=== PATIENT | female | born 1950 | race Caucasian/White ===

== ENCOUNTER 2019-02-20 09:37 | Outpatient (CLI) | payer OTHER, SELFPAY ==
[2019-02-20 14:24] LABS: Anion Gap 7.5 mmol/L (3-11); BUN 22 mg/dL (7-18); CO2 29.5 mmol/L (21.0-32.0); CREATININE 0.67 mg/dL (0.55-1.02); Calcium 9.4 mg/dL (8.5-10.1); Chloride 103 mmol/L (98-107); Cholesterol 257 mg/dL (50-200); Glucose 91 mg/dL (70-100); HDL Cholesterol 84 mg/dL (40-60); LDL CHOLESTEROL 158 mg/dL (<100); Potassium 4.2 mmol/L (3.5-5.1); Sodium 140 mmol/L (136-145); Triglyceride 40 mg/dL (30-150)
== END 2019-02-20 09:57 ==
PROVIDERS: PCP Emergency Medicine; Visit Provider Emergency Medicine
DX: I10 Essential (primary) hypertension (principal)
CPT/HCPCS: 36415; 80048; 80061; 83721

== ENCOUNTER 2019-07-30 02:21 | Outpatient (CLI) | payer OTHER, SELFPAY ==
--- NOTE | 2019-08-16 08:29 | ZIOP_ITS ---
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 ?Patient wore the monitor for 13 days. ?The patient was predominantly in normal sinus rhythm. Average heart rate was 76 bpm (minimum 50 bpm?maximum 144 bpm) ?There were 4 episodes of supraventricular tachycardia with the longest lasting 11 beats. ?There were rare isolated (less than 1%) supraventricular ectopic beats ?There were isolated rare (less than 1%) singular ventricular ectopic beats. There were no episodes of ventricular tachycardia. ?There were no pauses greater than 3 seconds no episodes of atrial fibrillation and no episodes of high degree AV block. Date of service: 08/16/19 Time of Service: 08:29
== END 2019-07-30 02:41 ==
PROVIDERS: PCP Emergency Medicine; Visit Provider Emergency Medicine
DX: R55 Syncope and collapse (principal); I47.1 Supraventricular tachycardia

== ENCOUNTER 2020-05-13 02:55 | Outpatient (CLI) | payer OTHER, SELFPAY ==
[2020-05-13 10:30] LABS: Anion Gap 9.1 mmol/L (3-11); BUN 19 mg/dL (7-18); CO2 26.9 mmol/L (21.0-32.0); CREATININE 0.75 mg/dL (0.55-1.02); Calcium 9.2 mg/dL (8.5-10.1); Chloride 106 mmol/L (98-107); Glucose 90 mg/dL (74-106); Sodium 142 mmol/L (136-145)
[2020-05-13 10:33] LABS: Calculated LDL 85 mg/dL (<100); Cholesterol 174 mg/dL (<200); HDL Cholesterol 81 mg/dL (40-60); Triglyceride 42 mg/dL (<150)
== END 2020-05-13 03:15 ==
PROVIDERS: PCP Emergency Medicine; Visit Provider Emergency Medicine
DX: E78.5 Hyperlipidemia, unspecified (principal); I10 Essential (primary) hypertension
CPT/HCPCS: 36415; 80048; 80061

== ENCOUNTER 2021-04-20 10:52 | Outpatient (CLI) | payer OTHER, SELFPAY ==
[2021-04-20 13:57] LABS: Anion Gap 10.4 mmol/L (3-11); BUN 20 mg/dL (7-18); CO2 26.6 mmol/L (21.0-32.0); CREATININE 0.8 mg/dL (0.55-1.02); Chloride 106 mmol/L (98-107); Glucose 77 mg/dL (74-106); Potassium 3.8 mmol/L (3.5-5.1); Sodium 143 mmol/L (136-145)
== END 2021-04-20 10:53 | disposition home or self-care (01) ==
LOC: LOS 10:53
PROVIDERS: PCP Emergency Medicine; Referring Provider Emergency Medicine; Visit Provider Emergency Medicine
DX: I10 Essential (primary) hypertension (principal)
CPT/HCPCS: 36415; 80048

== ENCOUNTER → 2022-07-15 00:20 | Outpatient (CLI) | payer MEDICARE, SELFPAY ==
--- NOTE | 2022-07-15 08:00 | DI.MAMMO_ITS ---
Exam(s) MAMMO SCREENING EXAM: MAMMO SCREENING CLINICAL HISTORY: screening,z12.39, h/o stable spot lt breast TECHNIQUE: Mammograms were interpreted according to the usual protocol including computer analysis w [employer] CAD system, tomosynthesis and C-view imaging. COMPARISON: 2011 through 2020 FINDINGS: The breasts are composed of heterogeneously dense fibroglandular densities, Breast Density category C . No suspicious masses or suspicious microcalcifications are seen. Scattered coarse, benign-appearing calcifications are again noted bilaterally. No skin thickening or abnormal axillary lymph nodes are seen. There has been no significant change from prior exams. IMPRESSION: BI-RADS Cat 2 - Benign Findings Yearly screening mammography is recommended. Breast Density Category C, heterogeneously Dense. The mammogram demonstrates the patient's breast tissue is dense. Dense breast tissue is very common a nd is not abnormal but dense breast tissue can make it harder to find cancer on a mammogram. Also, de nse breast tissue may increase breast cancer risk. This information about the result of the mammogram report was provided to the patient to raise their awareness. Use this report when you speak with the patient about their risks for breast cancer, which includes their family history. At that time, you may recommend additional screening tests (Ultrasound or MRI) as they might be useful based on their r isk. A negative radiographic report should not delay biopsy if a dominant or clinically suspicious mass is present. Up to ten percent of cancers are not identified on mammography. A negative report may reinforce clinical impression. Adenosis and dense breasts may obscure an underlying neoplasm. False positive reports average 6 to 10%.
--- NOTE | 2022-07-15 15:20 | DI.DEXA_ITS ---
Exam(s) XR DEXA BONE DENSITY W/WO JOLYNN EXAM: XR DEXA BONE DENSITY W/WO JOLYNN CLINICAL HISTORY: osteoporosis,m81.0 TECHNIQUE: COMPARISON: CR LUMBAR SPINE COMPLETE from 01/09/2013 FINDINGS: DEXA scan was performed according to the usual protocol. Please see the accompanying data sheets. Findings for left hip scanning are T-score -1.4 with left femoral neck T-score -1.3. Findings for lumbar spine scanning are T-score 0.2. Left forearm scanning shows T-score -2.4. IMPRESSION: Measurements are consistent with osteopenia according to the WHO criteria. The lateral vertebral sca nogram shows no evidence of a vertebral compression fracture. RADIATION DOSE DELIVERED: Total DLP
== END ==
PROVIDERS: PCP Family Medicine; Visit Provider Family Medicine
DX: Z12.31 Encounter for screening mammogram for malignant neoplasm of breast; Z13.820 Encounter for screening for osteoporosis; M85.88 Other specified disorders of bone density and structure, other site; R92.8 Other abnormal and inconclusive findings on diagnostic imaging of breast
CPT/HCPCS: 77063; 77067; 77080

== ENCOUNTER → 2022-07-19 09:25 | Outpatient (BNVA) | payer MEDICARE, SELFPAY | PROVIDERS: PCP Family Medicine; Referring Provider Emergency Medicine; Visit Provider Surgery | DX: Z86.010 Personal history of colon polyps (principal); Z12.11 Encounter for screening for malignant neoplasm of colon ==

== ENCOUNTER 2022-08-10 06:21 | Day surgery (SDC) | payer MEDICARE, SELFPAY ==
--- NOTE | 2022-08-10 06:16 | W.COLOREPORT ---
Date of service: 08/10/22 Time of Service: : Colonoscopy Report Date of procedure: 08/10/22 Pre-op diagnosis general: Screening and Hx of polyps Post-op diagnosis procedure note: other (polyps and diverticulosis) Procedure: Colonoscopy with polypectomy Surgeon: Gretel Nicholson Anesthesia Type: General:No Airway Estimated blood loss (mL): 3 Pathology: other (cecal polyps x2, ascending polyps x2, sigmoid polyp) Complications: None Disposition: same day Indications: The patient? is a pleasant ? 72-year-old female who is here to discuss another screening colonoscopy. ? Her last colonoscopy was in 2010 and she was noted to have a tubular adenoma.? She denies any changes in bowel habits, melena, hematochezia, unintentional weight loss or family history of colon cancer.? The procedure and risks were discussed.? The prep was reviewed in detail.? Risks, benefits and complications have been reviewed. Complications include but are not limited to bleeding, pain, perforation, missed small lesion/polyp, sore throat, aspiration and adverse reaction to the medications. Questions were entertained and answered to their satisfaction and they wished to proceed. No guarantees were given or implied. Prep: Miralax/Dulcolax Procedure Start Time: Procedure End Time: :53 Retraction Time: 16 minutes Findings: 5 sessile polyps Mcmahon-diverticulosis Procedure Description: After informed consent was obtained the patient was taken to the procedure room and placed in a left decubitous position. Monitors were applied and a time out was done. The patients name, date of , procedure, allergies to medications and metal in their body was reviewed. The patient was then sedated. Once sedated and comfortable a rectal exam was done. External exam was normal. Internal exam revealed a normal sphincter tone and no palpable masses. The scope was then introduced and retro-flexed. no internal hemorrhoids, polyps or masses were identified on retro-flexion. The scope was then advanced to the cecum without difficulty. The colon was tortuous. The ileocecal valve and appendiceal orifice were identified. The prep was good. The scope was then slowly retracted over 16 minutes back into the rectum. Polyps were removed with cold forceps in the cecum x1, ascending colon x2 and sigmoid colon x1 and with a cold snare in the cecum x1. There was moderate mcmahon- diverticulosis noted. The scope was removed and the patient was woken up and taken back to Same day surgery in stable condition. The patient tolerated the procedure well and there were no immediate complications.
--- NOTE | 2022-08-10 06:17 | W.PM.DSUDISC ---
Date of service: 08/10/22 Time of Service: 07:26 Discharge Plan Disposition Patient Disposition: HOME Condition: Good Discharge Details Reason For Visit: colonoscopy Attending Provider: Gretel Nicholson Primary Care Provider: Veda Robles Home Meds and New Rx's Prescriptions: Continued rosuvastatin 5 mg tablet 5 mg PO DAILY estradiol [Yuvafem] 10 mcg tablet 10 mcg vaginal .twice weekly Qty: 24 4RF amlodipine 5 mg tablet 5 mg PO DAILY Qty: 90 3RF losartan [Cozaar] 50 mg tablet 50 mg PO DAILY Qty: 90 3RF Discontinued bisacodyl [Dulcolax (bisacodyl)] 5 mg tablet,delayed release (DR/EC) 5 mg PO ONCE Qty: 4 0RF Rx Instructions: Take according to provider's instructions for colonoscopy prep. polyethylene glycol 3350 17 gram/dose powder 17 g PO ONCE Qty: 238 0RF Rx Instructions: To be taken as directed by prescriber's office for colonoscopy prep. Discharge Instructions Instructions: Diverticulosis (ED), Colorectal Polyps (DC) Additional Instructions: Findings: 5 polyps Diverticulosis Follow up: 3-5 years Please call if you develop: fevers >101.5 Nausea or Vomiting Abdominal pain that is not transient Rectal bleeding that is more then a tbsp A hard abdomen and inability to pass gas DAY SURGERY UNIT POST ENDOSCOPY INSTRUCTIONS Instructions for everyone who is given Anesthesia: For your safety, please do the following for the next 24 Hours: a. Do not drive or operate dangerous equipment b. Do not drink alcohol beverages or use any recreational drugs for the first 24 hours or while taking pain medications. The medications in your body may have a reaction that can be dangerous. c. Do not make any important decisions or sign any important papers 1. Generally there are no restrictions on your activity after a day or so has gone by, but you may feel a bit fatigued for a few days. 2. After you arrive home you may have a light meal and return to a normal diet as you can tolerate it without feeling sick to your stomach. 3. After surgery, you may feel pain or discomfort. This should be only transient, but if it persists please contact your doctor. 4. If there are any questions regarding the findings of your procedure, please feel free to contact your doctor. 6. If you are unable to contact your doctor with a problem, contact the hospital at [phone]. 8. Continue all your regular medications unless directed otherwise. I understand the above instructions and have no questions. Signature of Patient or Responsible Adult Escort Date/Time Name of Responsible Adult Escort Signature of Nurse Date/Time Activity:: Activity as Tolerated Diet:: high fiber diet Discharge Orders Discharge Orders: Discharge Order (Routine); Ordered 08/10/22 Ordered By: Gretel Nicholson
[2022-08-10 06:20] VITALS: BP 166/78; PULSE 95; RESP 18; TEMP 36.4; O2SAT 100
[2022-08-10] MEDS: Lactated Ringers 1,000 ML 80 ML IV (06:44)
--- NOTE | 2022-08-10 07:12 | W.ANESPRE ---
General Info Date of Service Date Performed: 08/10/22 Height: 5 ft 3 in Weight: 52.1 kg Body Mass Index (BMI): 20.3 Surgical Procedure: Operation Date: 08/10/22 07:35 Proposed Procedure Side Surgeon azar Nicholson MD Meds Allergies and Home Medications Allergies Allergy/AdvReac Type Severity Reaction Status Date / Time No Known Drug Allergies Allergy Verified 08/10/22 06:30 Home Medication Medication Instructions Recorded amlodipine 5 mg tablet 5 mg PO DAILY #90 tabs 12/31/21 losartan 50 mg tablet (Cozaar) 50 mg PO DAILY #90 tab-caps 12/31/21 estradiol 10 mcg vaginal tablet 10 mcg vaginal .twice weekly #24 05/17/22 (Yuvafem) tabs bisacodyl 5 mg tablet,delayed 5 mg PO ONCE #4 tabs 07/19/22 release (Dulcolax (bisacodyl)) polyethylene glycol 3350 17 17 g PO ONCE #238 grams 07/19/22 gram/dose oral powder rosuvastatin 5 mg tablet 5 mg PO DAILY 07/19/22 Current Visit Medications: Current Medications Generic Name Dose Route Start Last Admin Trade Name Freq PRN Reason Stop Dose Admin Hyoscyamine Sulfate 0.125 mg 08/10/22 06:19 Hyoscyamine 0.125 Mg Sl/Oral/Chew SL DIRECTED PRN Ringer's Solution 1,000 mls @ 80 mls/hr 08/10/22 06:00 08/10/22 06:44 IV 09/08/22 23:59 80 mls/hr INFUSION LYN Administration IV Miscellaneous Supplies 1 each 08/10/22 06:00 Iv Access IV 09/08/22 23:59 DIRECTED LYN Ondansetron HCl 4 mg 08/10/22 06:19 Ondansetron 4 Mg/2 Ml Vial IVP Q4H PRN PRN Nausea / Vomiting Sodium Chloride 0 ml 08/10/22 06:00 Normal Saline Flush 10 Ml Syr IV 09/08/22 23:59 PRN PRN Sodium Chloride 0 ml 08/10/22 06:00 Normal Saline 10 Ml Vial IJ 09/08/22 23:59 DIRECTED PRN Sterile Water 0 ml 08/10/22 06:00 Water,Injection,Sterile 10 Ml Vial IJ 09/08/22 23:59 DIRECTED PRN PFSH Active Problems Active Problems: Problem Status Onset Code Screening for colon cancer Z12.11 Osteoporosis M81.0 Hyperlipidemia E78.5 Pre-syncope R55 Impingement syndrome of left shoulder M75.42 Left shoulder pain M25.512 Meningioma D32.9 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 Essential hypertension 12/29/17 I10 Surgical History Surgical History CHILDBIRTH [birth year] Tobacco Smoking/Tobacco Use Status: Never Passive smoking exposure: Yes Alcohol Alcohol Intake: current Alcohol intake frequency: 0-2 drinks per day Alcohol type: wine Substance Use Substance use: Never Substance use type: does not use Prental History History 3 Para Hx # Term Pregnancies 2 Multiple births Hx # Pregnancies Ectopic pregnancies AB induced Hx Number of Living Children AB spontaneous Vital Signs and Lab Results Vital Signs Most Recent Vital Signs in EMR: Most Recent Vital Signs Temp Pulse Resp BP Pulse Ox 36.4 C L 95 H 18 166/78 H 100 08/10/22 06:20 08/10/22 06:20 08/10/22 06:20 08/10/22 06:20 08/10/22 06:20 Lab Results Blood Type / Crossmatch: No Data to Display Complete Blood Count: No Data to Display Complete Metabolic Panel: No Data to Display Liver Function Panel: No Data to Display Coagulation Panel: No Data to Display Cardiac Panel: No Data to Display Arterial Blood Gas: No Data to Display Venous Blood Gas: No Data to Display Pancreas Panel: No Data to Display Thyroid Panel: No Data to Display Infectious Disease: No Data to Display Blood Cultures: No Data to Display Toxicology Panel: No Data to Display Imaging and Studies Imaging and Studies Study information below may be from another EMR and interpreted by another provider. Please see original notes in EMR for more complete details. Stress Test Summary: Date of Exam: 05/21/15Sex: F : 1950Age: 64 Exam(s) [id number] US:Stress Echocardiogram *[facility]* *[facility]* [address] [place] [address] Date of study: 05/21/2015 Stress Echocardiography Sascha protocol 2D, limited spectral Doppler, and color Doppler *STUDY CONCLUSIONS* Summary: 1. Stress: Maximal heart rate during stress was 152bpm (97% of maximal predicted heart rate). The maximal predicted heart rate was 156bpm. 2. Staged echo: Normal echo stress Anesthesia Assessment and Plan Anesthesia History Personal History: No History of Anesthesia Complications Family History: No Family History of Anesthesia Complications Exercise Tolerance Exercise Tolerance: Metabolic Equivalents>4 Pertinent Negatives Pertinent Negatives: No Symptoms of GERD and No Major Pulmonary Symptoms or Complaints Cardiac & Pulmonary Exam Cardiac Exam: Normal S1/S2 Heart Sounds Pulmonary Exam: Clear Bilateral Breath Sounds Implantable Cardiac Device Does patient have a Pacemaker or an ICD?: No Airway Exam Known Difficult Airway: No Mallampati Class: 2 Mouth Opening: Normal (> 3cm) Thyromental Distance: Less than 3 cm Neck Range of Motion: Full ROM Neck Circumference: Normal Teeth Condition: Normal Dentition ASA Classification ASA Score: ASA 2 Emergency Case?: No NPO Status NPO Status: NPO Clears >2 hours, Solids >8 hours Anesthesia Plan Resuscitation Status: Full Code Anesthesia Technique: General Anesthesia Airway Planned: Natural Airway Monitors Used: Standard Monitors
[2022-08-10 07:29] VITALS: BMI 20.3
--- NOTE | 2022-08-10 07:37 | BOWEL_PTH ---
PATIENT: Shea Kraus LOC: [facility] U#:[id number] AGE/SX: 72/F ROOM: RE08/10/[address]: Gretel Nicholson MD : 1950 BED: DIS: 08/10/2022 SPEC #: [id number] RECD: 08/10/22 12:58 STATUS: EDISON REChristi #: [id number] GARCIA: 08/10/22 07:[address]: Gretel Nicholson DEPT: Surgical Specimen RECD BY: Venecia Lindsay ENTERED: 08/10/22 12:59 SP TYPE: Bowel OTHR DR: Veda Robles MD, DC Tissues: 1 - BIOPSY BOWEL 2 - BIOPSY BOWEL 3 - BIOPSY BOWEL Procedures: GROSS AND MICRO LEVEL 4 Comments: [id number]
[2022-08-10 08:00] VITALS: BP 80/57; PULSE 69; RESP 16; TEMP 36.1; O2SAT 93
[2022-08-10 08:10] VITALS: BP 85/60; PULSE 65; RESP 16; TEMP 36; O2SAT 97
--- NOTE | 2022-08-10 08:27 | W.ANESPOSTOP ---
Postoperative Evaluation Date, Time and Location Date Performed: 08/10/22 Time Performed: 08:15 Patient Location: Day Surgery Unit Vital Signs Most Recent Imported Vital Signs: Most Recent Vital Signs Temp Pulse Resp BP Pulse Ox 36 C L 65 16 85/60 L 97 08/10/22 08:10 08/10/22 08:10 08/10/22 08:10 08/10/22 08:10 08/10/22 08:10 Pain Score Most Recent Pain Score: Most Recent Pain Score Pain Level 0 08/10/22 08:10 Assessment Mental Status: Awake (Alert & Oriented to Patient Baseline) Airway and Respiratory Function: Patent airway with normal (patient baseline) respiratory exam Cardiovascular Function: Hemodynamically Stable Hydration Status: Adequately Hydrated Nausea & Vomiting: No Nausea or Vomiting Pain: Pt. Denies Any Pain Peripheral Nerve Block: Patient did not receive a nerve block
== END 2022-08-10 08:55 | disposition home or self-care (01) ==
PROVIDERS: PCP Family Medicine; Visit Provider Surgery
PROC: 0DJD8ZZ Inspection of Lower Intestinal Tract, Via Natural or Artificial Opening Endoscopic (ICD-10-PCS; CPT 45378; principal; 2022-08-10 07:30)
DX: Z12.11 Encounter for screening for malignant neoplasm of colon (principal); K63.5 Polyp of colon; K57.30 Diverticulosis of large intestine without perforation or abscess without bleeding; Z86.010 Personal history of colon polyps
CPT/HCPCS: 45385; 45380; 88305

== ENCOUNTER 2022-08-19 02:28 | Outpatient (CLI) | payer MEDICARE, SELFPAY ==
--- OUTSIDE RECORDS SUMMARY | 2022-08-19 02:42 | XMS_ITS | Encounter Summary ---
:1950 Author Organization [facility] Address [address] [place] [address] Care Team Providers Name Role Phone Edil Ramríez DO Primary Care Provider Encounter Details Date Type Department Care Team Description 03/28/2018 Hospital Encounter Mammography at [facility] Edil Ramírez, Encounter for One [facility] DO screening mammogram Drive [address] [place] [address] for breast cancer [place], [place] [address] [id number] [place], [place] [phone] [id number] Social History Tobacco Use Types Packs/Day Years Used Date Never Smoker Smokeless Tobacco: Never Used Sex Assigned at Date Recorded Not on file documented as of this encounter Medications at Time of Discharge Medication Sig Dispensed Refills Start Date End Date losartan (Cozaar) 50 mg Take 50 mg by mouth 0 Tablet daily. amLODIPine (NORVASC) 5 mg Take 5 mg by mouth 0 TabletIndications: Unsure daily. Indications: of actual dosage Unsure of actual dosage documented as of this encounter Plan of Treatment Scheduled Procedures Name Priority Associated Diagnoses Date/Time COLONOSCOPY, DIAGNOSTIC screening same day documented as of this encounter Procedures Procedure Name Priority Date/Time Associated Diagnosis Comme nts MAMMO SCREENING CAD Routine 03/28/2018 3:50 PM Encounter for R esults for this AND JOHN BILATERAL EDT screening mammogram pr ocedure are in for breast cancer the result s section. documented in this encounter Results Mammo Screening Cad and John Bilateral (03/28/2018 3:50 PM EDT) Anatomical Region Laterality Modality Breast Bilateral Mammography Specimen (Source) Anatomical Location Collection Method / Collectio n Time Received Time / Laterality Volume Narrative 03/28/2018 4:45 PM EDT BILATERAL MAMMOGRAPHY REASON FOR EXAM: Screening TECHNIQUE: CC and MLO views were obtaine d of each breast using standard 2-D mammography as well as 3-D tomosynth esis. Computer aided detection was used. This is compared with prior images . FINDINGS: ??The breasts are heterogeneou sly dense, which may obscure small masses. There are no suspicious microcal cifications, masses, or areas of distortion. The pattern is stable. CONCLUSION: No mammographic evidence of malignancy. RECOMMENDATION: The [employer] and The Society of Breast Imaging recommend annual screenin g beginning at age 40 for the general female population. Screening maritza uld continue as long as a woman is in good health and is expected to live 1 0 more years or longer. All women should be familiar with the known benefi ts, limitations, and potential harms linked to breast cancer screening. They should also know how their breasts normally look and feel and repor t any breast changes to a health care provider right away. Some women - b ecause of their family history, a genetic tendency, or certain other facto rs - should be screened with MRIs along with mammograms. (The number of wo men who fall into this category is very small.) The patient and health care provider should discuss the patient history and decide if earlier sc reening and breast MRI are appropriate. A result letter has been sent to this pa olaf by [facility]. BIRADS CATEGORY 1: NEGATIVE Edil Ramírez DO IMG MAMMO ORDERABLES documented in this encounter Visit Diagnoses Diagnosis Encounter for screening mammogram for br east cancer documented in this encounter Care Teams Service Parts Driver Relationship Specialty Start Date End Date Edil Ramírez DO PCP - General 10/30/[address] [place] [address] documented as of this encounter
--- OUTSIDE RECORDS SUMMARY | 2022-08-19 02:42 | XMS_ITS | Encounter Summary ---
:1950 Author Organization [facility] [address] Care Team Providers Name Role Phone Edil Ramírez DO Primary Care Provider Reason for Visit Diagnostic Test (Routine) - Closed Specialty Diagnoses / Procedures Referred By Contact Refer red To Contact Radiology Diagnoses Syncope and collapse Edil Ramírez DO [facility] Rad Nuclear Med Procedures NM Exercise Stress CT Component [address] [facility] 1 [place], [place] [address] [place] [address] Phone: Fax: Referral ID Status Reason Start Date Expiration Date Visits V isits Requested Authorized [id number] Closed Specialty 07/17/2019 10/15/2019 1 1 Service Requested Encounter Details Date Type Department Care Team Description 08/29/2019 Hospital Encounter Nuclear Medicine at Edil Ramírez DO [facility] [address] [facility] 1 [place] [address] [place] [address] [phone] Social History Tobacco Use Types Packs/Day Years Used Date Never Smoker Smokeless Tobacco: Never Used Alcohol Use Standard Drinks/Week Comments Yes 0 (1 standard drink = 0.6 oz pure alcoho l) occasional wine at dinner Alcohol Habits Answer Date Recorded How often do you have a drink containing Not asked alcohol? How many drinks containing alcohol do you Not asked have on a typical day when you are drinking? How often do you have six or more drinks on Not asked one occasion? Comment: occasional wine at dinner 07/16/2019 Sex Assigned at Date Recorded Not on file documented as of this encounter Medications at Time of Discharge Medication Sig Dispensed Refills Start Date End Date losartan (Cozaar) 50 Take 50 mg by mouth 0 mg Tablet daily. amLODIPine (NORVASC) 5 Take 5 mg by mouth 0 mg TabletIndications: daily. Indications: Unsure of actual Unsure of actual dosage dosage estradiol (VAGIFEM) 10 Place 10 mcg vaginally 0 07/15/2021 mcg Tablet every 30 days. Occasionally uses twice monthly documented as of this encounter Plan of Treatment Scheduled Procedures Name Priority Associated Diagnoses Date/Time COLONOSCOPY, DIAGNOSTIC screening same day documented as of this encounter Procedures Procedure Name Priority Date/Time Associated Diagnosis Comme nts NM EXERCISE STRESS Routine 08/29/2019 9:36 AM Syncope and parker apse Results for this CT COMPONENT EST procedure are i n the results section. documented in this encounter Results NM Exercise Stress CT Component (08/29/2019 9:36 AM EST) Anatomical Region Laterality Modality Nuclear Medicine Specimen (Source) Anatomical Location Collection Method / Collectio n Time Received Time / Laterality Volume Impressions 08/29/2019 3:01 PM EST No ischemia or scar. ??Left ventricular function is normal. Preliminary report signed by: Angelito gonzales at 08/29/2019 2:14 PM I have personally reviewed the image(s) and the residents interpretation and agree with the findings, Reyes Thakkar at 08/29/2019 3:01 PM Thank you for letting us participate in the care of this patient. For questions regarding this report, please contact e number below. ? Narrative 08/29/2019 3:01 PM EST EXAMINATION: NM EXERCISE STRESS MYOCARDIAL PERFUSION, NM EXERCISE STRESS CT COMPONENT CLINICAL HISTORY: Near syncope OUTSIDE ORDER IN SCANNED DOCS TECHNIQUE: During rest, 8.2 mCi of techn etium-99 sestamibi were administered intravenously. Approximately 15 minutes later, SPECT images of the heart were obtained with reconstruction in the shor t, vertical long and horizontal long axes. The patient was then exercised to 10.1 M ETS to a peak heart rate of 79 bpm which is 107 % of the maximum predicted heart rate. ??23.7 mCi of technetium-99m sestamibi was then administered intraven ously and the patient was exercised for one and one half additional minutes. Nora ges of the heart were then again obtained with SPECT reconstruction. A low dose CT scan was acquired for the purpose of attenuation correction. COMPARISON: None FINDINGS: No fixed or reversible perfusion defects are present. Functional analysis: Myocardial function: There is normal wal l motion and wall thickening. Left ventricular ejection fraction: 70 % (normal greater than 50%) INCIDENTAL CT FINDINGS: None. Procedure Note Reyes Thakkar MD - 08/29/2019Formatti ng of this note might be different from the original. EXAMINATION: NM EXERCISE STRESS MYOCARDI AL PERFUSION, NM EXERCISE STRESS CT COMPONENT CLINICAL HISTORY: Near syncope OUTSIDE ORDER IN SCANNED DOCS TECHNIQUE: During rest, 8.2 mCi of techn etium-99 sestamibi were administered intravenously. Approximately 15 minutes later, SPECT images of the heart were obtained with reconstruction in the shor t, vertical long and horizontal long axes. The patient was then exercised to 10.1 M ETS to a peak heart rate of 79 bpm which is 107 % of the maximum predicted heart rate. 23.7 mCi of technetium-99m sestamibi was then administered intraven ously and the patient was exercised for one and one half additional minutes. Nora ges of the heart were then again obtained with SPECT reconstruction. A low dose CT scan was acquired for the purpose of attenuation correction. COMPARISON: None FINDINGS: No fixed or reversible perfusion defects are present. Functional analysis: Myocardial function: There is normal wal l motion and wall thickening. Left ventricular ejection fraction: 70 % (normal greater than 50%) INCIDENTAL CT FINDINGS: None. IMPRESSION No ischemia or scar. Left ventricular fu nction is normal. Preliminary report signed by: Angelito gonzales at 08/29/2019 2:14 PM I have personally reviewed the image(s) and the residents interpretation and agree with the findings, Reyes Thakkar at 08/29/2019 3:01 PM Thank you for letting us participate in the care of this patient. For questions regarding this report, please contact e number below. Edil Ramírez DO IMG NM ORDERABLES NM Exercise Stress Myocardial Perfusion (08/29/2019 8:40 AM EST) Anatomical Region Laterality Modality Nuclear Medicine Specimen (Source) Anatomical Location Collection Method / Collectio n Time Received Time / Laterality Volume Impressions 08/29/2019 3:01 PM EST No ischemia or scar. ??Left ventricular function is normal. Preliminary report signed by: Angelito gonzales at 08/29/2019 2:14 PM I have personally reviewed the image(s) and the residents interpretation and agree with the findings, Reyes Thakkar at 08/29/2019 3:01 PM Thank you for letting us participate in the care of this patient. For questions regarding this report, please contact e number below. ? Narrative 08/29/2019 3:01 PM EST EXAMINATION: NM EXERCISE STRESS MYOCARDIAL PERFUSION, NM EXERCISE STRESS CT COMPONENT CLINICAL HISTORY: Near syncope OUTSIDE ORDER IN SCANNED DOCS TECHNIQUE: During rest, 8.2 mCi of techn etium-99 sestamibi were administered intravenously. Approximately 15 minutes later, SPECT images of the heart were obtained with reconstruction in the shor t, vertical long and horizontal long axes. The patient was then exercised to 10.1 M ETS to a peak heart rate of 79 bpm which is 107 % of the maximum predicted heart rate. ??23.7 mCi of technetium-99m sestamibi was then administered intraven ously and the patient was exercised for one and one half additional minutes. Nora ges of the heart were then again obtained with SPECT reconstruction. A low dose CT scan was acquired for the purpose of attenuation correction. COMPARISON: None FINDINGS: No fixed or reversible perfusion defects are present. Functional analysis: Myocardial function: There is normal wal l motion and wall thickening. Left ventricular ejection fraction: 70 % (normal greater than 50%) INCIDENTAL CT FINDINGS: None. Procedure Note Reyes Thakkar MD - 08/29/2019Formatti ng of this note might be different from the original. EXAMINATION: NM EXERCISE STRESS MYOCARDI AL PERFUSION, NM EXERCISE STRESS CT COMPONENT CLINICAL HISTORY: Near syncope OUTSIDE ORDER IN SCANNED DOCS TECHNIQUE: During rest, 8.2 mCi of techn etium-99 sestamibi were administered intravenously. Approximately 15 minutes later, SPECT images of the heart were obtained with reconstruction in the shor t, vertical long and horizontal long axes. The patient was then exercised to 10.1 M ETS to a peak heart rate of 79 bpm which is 107 % of the maximum predicted heart rate. 23.7 mCi of technetium-99m sestamibi was then administered intraven ously and the patient was exercised for one and one half additional minutes. Nora ges of the heart were then again obtained with SPECT reconstruction. A low dose CT scan was acquired for the purpose of attenuation correction. COMPARISON: None FINDINGS: No fixed or reversible perfusion defects are present. Functional analysis: Myocardial function: There is normal wal l motion and wall thickening. Left ventricular ejection fraction: 70 % (normal greater than 50%) INCIDENTAL CT FINDINGS: None. IMPRESSION No ischemia or scar. Left ventricular fu nction is normal. Preliminary report signed by: Angelito gonzales at 08/29/2019 2:14 PM I have personally reviewed the image(s) and the residents interpretation and agree with the findings, Reyes Thakkar at 08/29/2019 3:01 PM Thank you for letting us participate in the care of this patient. For questions regarding this report, please contact e number below. Edil ULBIN NM ORDERABLES documented in this encounter Visit Diagnoses Not on filedocumented in this encounter Care Teams Lay Out Former Relationship Specialty Start Date End Date Edil Ramíerz DO PCP - General 10/30/[address] [place] [address] documented as of this encounter
--- OUTSIDE RECORDS SUMMARY | 2022-08-19 02:42 | XMS_ITS | Encounter Summary ---
:1950 Author Organization [facility] [address] Care Team Providers Name Role Phone DarrellEdil larose Primary Care Provider Reason for Referral Diagnostic Test (Routine) - Closed Specialty Diagnoses / Procedures Referred By Contact Refer red To Contact Radiology Diagnoses Meningioma Matthew Jimenez MD [facility] Rad Mri Procedures MRI Brain wwo Contrast (Generic) [facility] [place] [address] [place] [address] Referral ID Status Reason Start Date Expiration Date Visits V isits Requested Authorized [id number] Closed Specialty 07/21/2020 01/17/2021 1 1 Service Requested Reason for Visit Reason Comments Advice Only small 6mm left parafalcine d ural based enhancing lesion Encounter Details Date Type Department Care Team Description 07/16/2019 Office Visit [place] [facility] [place] Jimenez MD [facility] [place] [address] NEUROSURGERY [phone] [place], [place] [address] (Wo rk) Social History Tobacco Use Types Packs/Day Years [...] on file documented as of this encounter Last Filed Vital Signs Vital Sign Reading Time Taken Comments Blood Pressure 158/82 07/16/2019 2:55 PM EDT Pulse 106 07/16/2019 2:55 PM EDT Temperature - - Respiratory Rate - - Oxygen Saturation - - Inhaled Oxygen Concentration - - Weight 53 kg (116 lb 13.5 oz) 07/16/2019 2:55 PM EDT Height 160 cm (5' 3) 07/16/2019 2:55 PM EDT Body Mass Index 20.7 07/16/2019 2:55 PM EDT documented in this encounter Progress Notes Matthew Jimenez MD - 07/16/2019 3:15 PM EDT I am just seeing Shea Krasu in the neurosurgery clinic. She is a pleasant 69-year-old femalewho was evaluated in our emergency room latter part of June when she had an episode that was likely linked to hypertension. While she was being evaluated she also noted a several day history of a focal pain in the right parietal region. This prompted the concern for a hypertensive bleed, etc. Sheunderwent a CT scan which showed no acute abnormality but did reveal the possibility of a small falcine meningioma. She was ultimately discharged and brought back with an MRI scan. She continues to have this right parietal pain but states that it is tolerable. She considers this perhaps a 1 or 2 on a 10 scale. Her past medical history is pertinent for hypertension. She denies any history of known cancer. Her MRI was reviewed with her. This shows a 6 x 4 mm lesion in coronal imaging. This is attached to the falx and projects to the left side in the posterior frontal/anterior parietal region. It abuts but does not significantly displace the cortex. There is no FLAIR abnormality within the cortex itself. I explained that this is a likely small meningioma. It should not pose a significant risk to her in the near future but we do not know the exact growth rate. I suggested that we get a follow-up MRI scan in 1 year to assess for growth. If she has any worsening symptoms we can certainly obtain the MRI so klaudia. Otherwise we will plan on seeing her back in 1 year and make further determinations at that time documented in this encounter Plan of Treatment Scheduled Procedures Name Priority Associated Diagnoses Date/Time COLONOSCOPY, DIAGNOSTIC screening same day documented as of this encounter Results MRI Brain wwo Contrast (Generic) (07/21/2020 11:19 AM EDT) Anatomical Region Laterality Modality Head Magnetic Resonance Specimen (Source) Anatomical Location Collection Method / Collectio n Time Received Time / Laterality Volume Impressions 07/21/2020 1:31 PM EDT Slight interval increased size of the 1 cm left parafalcine meningioma. Thank you for letting us participate in the care of this patient. For questions regarding this report, please contact [facility] number below. ? Narrative 07/21/2020 1:31 PM EDT EXAMINATION: MRI BRAIN WWO CONTRAST (GENERIC) CLINICAL HISTORY: meningioma TECHNIQUE: MRI of the brain was performed before an d after the intravenous administration of 10cc Dotarem. COMPARISON: Brain MRI 07/10/2019. FINDINGS: Multiple foci of increased T2 signal wit hin the supratentorial white matter reflects moderate small vessel ischemic disease. Mild atrophy with prominence of ventricles and sulci. Slight increased s ize of the 1 cm left para falcine meningioma previously measuring about 8 mm in maximal size on the axial plane. No other masses are identified. No diffu jennifer-weighted abnormalities. Intracranial midline structures are norm al. Proximal intracranial flow voids are unremarkable. Paranasal sinuses and mast oid air cells are clear. Procedure Note Vitaliy Boone MD - 07/21/2020Formatti ng of this note might be different from the original. EXAMINATION: MRI BRAIN WWO CONTRAST (GEN JAVIER) CLINICAL HISTORY: meningioma TECHNIQUE: MRI of the brain was performed before an d after the intravenous administration of 10cc Dotarem. COMPARISON: Brain MRI 07/10/2019. FINDINGS: Multiple foci of increased T2 signal wit hin the supratentorial white matter reflects moderate small vessel ischemic disease. Mild atrophy with prominence of ventricles and sulci. Slight increased s ize of the 1 cm left para falcine meningioma previously measuring about 8 mm in maximal size on the axial plane. No other masses are identified. No diffu jennifer-weighted abnormalities. Intracranial midline structures are norm al. Proximal intracranial flow voids are unremarkable. Paranasal sinuses and mast oid air cells are clear. IMPRESSION Slight interval increased size of the 1 cm left parafalcine meningioma. Thank you for letting us participate in the care of this patient. For questions regarding this report, please contact e number below. Matthew Jimenez MD IMG MRI ORDERABLES documented in this encounter Visit Diagnoses Diagnosis Meningioma Benign neoplasm of cerebral meninges Meningioma Benign neoplasm of cerebral meninges documented in this encounter Care Teams Hair Dryer Relationship Specialty Start Date End Date Edil Ramírez DO PCP - General 10/30/[address] [facility] 1 [place] [address] documented as of this encounter
--- OUTSIDE RECORDS SUMMARY | 2022-08-19 02:42 | XMS_ITS | Encounter Summary ---
:1950 Author Organization [facility] [place] [address] Care Team Providers Name Role Phone Edil Ramírez DO Primary Care Provider Encounter Details Date Type Department Care Team Description 10/15/2014 Telephone Dermatology at [facility] Carol Girard MD [address] [facility] [place] [address] [facility] [phone] [place], [place] [address] (Wo rk) Social History Tobacco Use Types Packs/Day Years Used Date Never Smoker Sex Assigned at Date Recorded Not on file documented as of this encounter Miscellaneous Notes Telephone Encounter - Kelly Law LPN - 10/17/2014 9:04 AM EST Returned patient's call regarding Tretinoin Cream. She states that she did not use the prescription that was written at last appointment due to expense. She said with the new year, she now has the funds and would like for us to resend the prescription. Prescription resent. Kelly Law LPN Telephone Encounter - Venecia Eric - 10/15/2014 10:35 AM EST Patient never used the script for Tretinoin written in February of 2014 and would like a new script, since she has funds to pay for it. It can be written to the same pharmacy. Patient contact # [phone]. documented in this encounter Plan of Treatment Scheduled Procedures Name Priority Associated Diagnoses Date/Time COLONOSCOPY, DIAGNOSTIC screening same day documented as of this encounter Visit Diagnoses Not on filedocumented in this encounter Care Teams Manager Of Tires Sales Relationship Specialty Start Date End Date Edil Ramírez DO PCP - General 10/30/[address] [place] [address] documented as of this encounter
--- OUTSIDE RECORDS SUMMARY | 2022-08-19 02:42 | XMS_ITS | Encounter Summary ---
:1950 Author Organization [facility] Address [facility] [address] [place] [address] Care Team Providers Name Role Phone Edil Ramírez DO Primary Care Provider Reason for Visit Reason Comments Skin Check Encounter Details Date Type Department Care Team Description 03/04/2014 Office Visit Dermatology at Carol Moeller ltiplsri benign nevi (Primary Dx); Lawrence Bach MD [place] angioma; [address] [facility] Dermatofibroma; [place] [address] Solar lentigo; [phone] [facility] [address] [place], [place] [address] Social History Tobacco Use Types Packs/Day Years Used Date Never Smoker Sex Assigned at Date Recorded Not on file documented as of this encounter Patient Instructions Patient InstructionsKelly Law LPN - 03/04/2014 11:06 AM EDT The nature of sun-induced photo-aging and skin cancers is discussed. Sun avoidance, protective clothing, and the use of 30-SPF sunscreens is advised. Observe closely for skin damage/changes, and call if such occurs. Tretinoin 0.025% cream, apply pea-sized amount to face nightly documented in this encounter Progress Notes Carol Magana MD - 03/04/2014 10:51 AM EDT DERMATOLOGY NEW PATIENT NOTE Date of service: 03/04/2014 Shea Kraus : 1950 Provider: Carol Magana MD Chief Complaint Patient presents with ??? Skin Check SKIN HISTORY: Benign Nevi-excised, per patient HPI The patient is seen at the request of self. hSea Kraus is a 63 y.o. year old female who isnew to me and is here for a full skin exam. She has a mole under her right axillae that she is concerned about that is more raised, but has not changed in color. She also has white bumps that she wouldlike checked. She uses sunscreen and denies any family history of skin cancer. MEDS: No current outpatient prescriptions on file. ADR: Review of patient's allergies indicates no known allergies. MEDICAL HISTORY: There is no problem list on file for this patient. 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 This includes examination of the skin of the face, ears, neck, chest, axillae, left and right upper and lower extremities, hands and feet, abdomen, and except the areas covered by underwear were not examined. Significant skin findings: A. Multiple, 0.3-0.5cm, medium-brown, evenly-pigmented macules and papules including on the face. All with regular pigment pattern on dermoscopy. No pigmented lesions suspicious for melanoma. B. 0.3-0.6cm scattered light-brown evenly pigmented, well-demarcated macules C. Multiple 0.2-0.4cm bright red, well-demarcated papules D. Firm papule, centrally raised and sclerotic, peripheral hyperpigmentation on the left lateral thigh. Dimpling with lateral pressure. E. Sun damage and fine wrinkles on face ASSESSMENT/PLAN: A. Benign-appearing Nevi - All with even pigmentation and well defined margins. - We will continue to monitor. - Encouraged patient to monitor these lesions for any changes and call if such occurs. - Discussed ABCDE's of melanoma. Handout given. B. Solar Lentigos -Discussed importance of sun protection, sun avoidance strategies, protective clothing, and sunscreen. I discussed warning signs for skin cancer. C. [place] Angiomas -Patient reassured areas are benign in nature. D. Dermatofibroma -Patient reassured area is benign in nature. E. Photoaging Prescription: -Tretinoin 0.025% cream, apply pea-sized amount to face nightly The nature of sun-induced photo-aging and skin cancers is discussed. Sun avoidance, protective clothing, and the use of 30-SPF sunscreens is advised. Observe closely for skin damage/changes, and call if such occurs. RTC: 2 years I am documenting this encounter acting as the scribe for and in the presence of Dr. Parsons.: Kelly Law LPN I performed the above scribed service and agree with the accuracy of the documentation in this encounter. Carol Magana MD Switchboard Mechanic of Dermatology, Department of Log RoperSwitchboard Mechaniclabourers (Dermatopathology) [facility] cc: EDIL RAMÍREZ DO documented in this encounter Plan of Treatment Scheduled Procedures Name Priority Associated Diagnoses Date/Time COLONOSCOPY, DIAGNOSTIC screening same day documented as of this encounter Visit Diagnoses Diagnosis Multiple benign nevi - Primary Benign neoplasm of skin, site unspecifie d [place] angioma Nevus, non-neoplastic Dermatofibroma Benign neoplasm of skin, site unspecifie d Solar lentigo Other dyschromia Rhytides Other specified hypertrophic and atrophi c condition of skin documented in this encounter Care Teams Tool Grinder Operator Surface Relationship Specialty Start Date End Date Edil Ramírez DO PCP - General 10/30/[address] [place] [address] documented as of this encounter
--- OUTSIDE RECORDS SUMMARY | 2022-08-19 02:42 | XMS_ITS | Encounter Summary ---
:1950 Author Organization [facility] [place] [address] Care Team Providers Name Role Phone Edil Ramírez DO Primary Care Provider Reason for Visit Diagnostic Test (Routine) - Closed Specialty Diagnoses / Procedures Referred By Contact Refer red To Contact Radiology Diagnoses Syncope and collapse Edil Ramírez DO [facility] Rad Nuclear Med Procedures NM Exercise Stress Myocardial Perfusion [address] [place] [address] Phone: Fax: Referral ID Status Reason Start Date Expiration Date Visits V isits Requested Authorized [id number] Closed Specialty 07/19/2019 07/18/2020 1 1 Service Requested Encounter Details Date Type Department Care Team Description 08/29/2019 Hospital Encounter Nuclear Medicine at Edil Ramírez DO [facility] [address] [facility] 1 [place] [address] [place] [address] [phone] Social History Tobacco Use Types Packs/Day Years [...] encounter Procedures Procedure Name Priority Date/Time Associated Comments Diagnosis NM EXERCISE STRESS Routine 08/29/2019 8:40 AM Syncope and Res ults for this AND REST MYOCARDIAL EST collapse procedur e are in PERFUSION the results section. documented in this encounter [...] For questions regarding this report, please contact th e number below. Edil Ramírez DO IMG NM ORDERABLES documented in this encounter Visit Diagnoses Not on filedocumented in this encounter Care Teams Manager Culinary Relationship Specialty Start Date End Date Edil Ramírez DO PCP - General 10/30/13 [address] [place] [address] documented as of this encounter
--- OUTSIDE RECORDS SUMMARY | 2022-08-19 02:42 | XMS_ITS | Encounter Summary ---
:1950 [place] [address] Care Team Providers Name Role Phone Edil Ramírez Primary Care Provider Encounter Details Date Type Department Care Team Description 08/18/2014 Hospital Encounter Radiology Library Robert Harrison creening breast at [facility] [place] Maxx examination [facility] [address] [place] DIAGNOSIC [address] RADIOLOGY [phone] [place] [address] Social History Tobacco Use Types Packs/Day Years Used Date Never Smoker Sex Assigned at Date Recorded Not on file documented as of this encounter Medications at Time of Discharge Medication Sig Dispensed Refills Start Date End Date tretinoin (RETIN-A) 0.025 Apply pea-sized 45 g 1 03/0410/17/2014 % creamIndications: amount to face every Rhytides night. documented as of this encounter Plan of Treatment Scheduled Procedures Name Priority Associated Diagnoses Date/Time COLONOSCOPY, DIAGNOSTIC screening same day documented as of this encounter Procedures Procedure Name Priority Date/Time Associated Diagnosis Comme nts FILM LIBRARY Routine 08/18/2014 12:00 AM Screening breast Resu lts for this STORAGE ONLY MAMMO EST examination procedure are in the results section. documented in this encounter Results Film Library- Storage Only Mammo (08/18/2014 12:00 AM EST) Specimen (Source) Anatomical Location Collection Method / Collectio n Time Received Time / Laterality Volume Narrative RAD - 02/20/2018 4:08 PM EDT This exam is for storage only and is aut o-finalizing. oRbert Harrison MD IMG FILM LIBRARY ORDERABLES Performing Organization Address City/State/ZIP Code Phon e Number [facility] [place], [place] documented in this encounter Visit Diagnoses Diagnosis Screening breast examination (Not by Lucinda june) Other screening breast examination documented in this encounter Care Teams Machinist Class B Relationship Specialty Start Date End Date Edil Ramírez DO PCP - General 10/30/[address] [facility] 1 [place] [address] documented as of this encounter
--- OUTSIDE RECORDS SUMMARY | 2022-08-19 02:42 | XMS_ITS | Encounter Summary ---
:1950 Author Organization [facility] [place] [address] Care Team Providers Name Role Phone Edil Ramírez DO Primary Care Provider Encounter Details Date Type Department Care Team Description 12/30/2021 Travel Social History Tobacco Use Types Packs/Day Years [...] on file documented as of this encounter Plan of Treatment Scheduled Procedures Name Priority Associated Diagnoses Date/Time COLONOSCOPY, DIAGNOSTIC screening same day documented as of this encounter Visit Diagnoses Not on filedocumented in this encounter Care Teams Manager Architecture Relationship Specialty Start Date End Date Edil Ramírez DO PCP - General 10/30/[address] [place] [address] documented as of this encounter
--- OUTSIDE RECORDS SUMMARY | 2022-08-19 02:42 | XMS_ITS | Encounter Summary ---
:1950 Author Organization [facility] [place] [address] Care Team Providers Name Role Phone DarrellEdil larose Primary Care Provider Encounter Details Date Type Department Care Team Description 03/08/2019 Telephone Gastroenterology at [facility] [place] [address] Social History Tobacco Use Types Packs/Day Years Used Date Never Smoker Smokeless Tobacco: Never Used Sex Assigned at Date Recorded Not on file documented as of this encounter Miscellaneous Notes Telephone Encounter - Any [place] - 03/08/2019 2:44 PM EDT Sheanat Kraus [id number] Diagnosis: screening 1. Have you ever had a colonoscopy before? [x] YES [] NO If Yes, Date of Last Hillman:Pt states that she had a colo about ten or so years ago If yes, did you have any problems with the procedure? [] YES [x] NO Explain: What type of sedation was used: 2. Do you take any Blood Thinners? [] YES [x] NO If Yes, type: 3. Do you have a Pacemaker or Defibrillator device? [] YES [x] NO If Yes send inPervacioet message to [facility] DEVICE CHECK 4. Are you a diabetic? [] YES [x] NO If yes, controlled by meds or diet? 5. Do you have any Allergies to Eggs, Latex or Medications? [] YES [x] NO If Yes, what: 6. Do you take any Oral Iron Supplements (Including multi vitamins)? [] YES [x] NO 7. Do you have a history of three or more abdominal surgeries? [] YES [x] NO 8. Have you had a problem with sedation or anesthesia? [] YES [x] NO 9. Do you have a c-pap machine or oxygen tank? [] C-PAP [] Oxygen [x] NO 10. Do you take prescription narcotic pain medications? [] YES [x] NO 11. You must have a responsible alliance party stay at the facility during your procedure and drive you home? [x] YES 12. Is there any other information you would like to give us to aid in scheduling? Height: 5'3 Weight: 115 BMI: 20.4 Age:68 y.o. documented in this encounter Plan of Treatment Scheduled Procedures Name Priority Associated Diagnoses Date/Time COLONOSCOPY, DIAGNOSTIC screening same day documented as of this encounter Visit Diagnoses Not on filedocumented in this encounter Care Teams Belt Picker Relationship Specialty Start Date End Date Edil Ramírez DO PCP - General 10/30/[address] [place] [address] documented as of this encounter
--- OUTSIDE RECORDS SUMMARY | 2022-08-19 02:42 | XMS_ITS | Encounter Summary ---
:1950 [place] [address] Care Team Providers Name Role Phone Edil Ramírez Primary Care Provider Encounter Details Date Type Department Care Team Description 03/01/2017 Hospital Encounter Radiology Library Robert Harrisonening breast at [facility] MD Maxx examination [facility] [place] [address] RADIOLOGY [phone] [place] [address] Social History Tobacco Use Types Packs/Day Years Used Date Never Smoker Sex Assigned at Date Recorded Not on file documented as of this encounter Plan of Treatment Scheduled Procedures Name Priority Associated Diagnoses Date/Time COLONOSCOPY, DIAGNOSTIC screening same day documented as of this encounter Procedures Procedure Name Priority Date/Time Associated Diagnosis Comme nts FILM LIBRARY Routine 03/01/2017 12:00 AM Screening breast Resu lts for this STORAGE ONLY MAMMO EDT examination procedure are in the results section. documented in this encounter Results Film Library- Storage Only Mammo (03/01/2017 12:00 AM EDT) Specimen (Source) Anatomical Location Collection Method / Collectio n Time Received Time / Laterality Volume Narrative [facility] - 02/20/2018 4:11 PM EDT This exam is for storage only and is aut o-finalizing. Robert Harrison MD IMG FILM LIBRARY ORDERABLES Performing Organization Address City/State/ZIP Code Phon e Number [facility] [place] [place] documented in this encounter Visit Diagnoses Diagnosis Screening breast examination (Not by Lucinda watkins) Other screening breast examination documented in this encounter Care Teams Rehab Technician Relationship Specialty Start Date End Date Edil Ramírez DO PCP - General 10/30/[address] [place] [address] documented as of this encounter
--- OUTSIDE RECORDS SUMMARY | 2022-08-19 02:42 | XMS_ITS | Encounter Summary ---
:1950 Author Organization [place] [address] Care Team Providers Name Role Phone Edil Ramírez DO Primary Care Provider Reason for Visit Diagnostic Test (Routine) - Closed Specialty Diagnoses / Procedures Referred By Contact Refer red To Contact Radiology Diagnoses Syncope and collapse Edil Ramírez DO [facility] Rad Nuclear Med Procedures NM Exercise Stress Myocardial Perfusion [address] [place], [place] [address] [place] [address] Phone: Fax: Referral ID Status Reason Start Date Expiration Date Visits V isits Requested Authorized [id number] Closed Specialty 07/19/2019 07/18/2020 1 1 Service Requested Encounter Details Date Type Department Care Team Description 08/23/2019 Hospital Encounter Nuclear Medicine at Bubba Ramírez as, Canceled ([facility] DO REASON / EXPEDITE [facility] [address] [place] [address] Social History Tobacco Use Types Packs/Day Years [...] on filedocumented in this encounter Care Teams Industry Consultant Relationship Specialty Start Date End Date Edil Ramírez DO PCP - General 10/30/[address] [place] [address] [address] [facility] [place] [address] documented as of this encounter
--- OUTSIDE RECORDS SUMMARY | 2022-08-19 02:42 | XMS_ITS | Encounter Summary ---
:1950 Author Organization [facility] [address] Care Team Providers Name Role Phone Darrell, Edil ALARCON Primary Care Provider Reason for Referral Diagnostic Test (Routine) - New Request Specialty Diagnoses / Procedures Referred By Contact Refer red To Contact Radiology Diagnoses Meningioma Lavinia Giron [facility] Rad Mri Procedures MRI Brain wwo Contrast (Generic) EDITING COMPUTER PUBLISHER [facility] [place] [address] [place] [address] Referral ID Status Reason Start Expiration Visits Visits Date Date Requested Authorized [id number] New Request Specialty 01/18/2023 1 1 Service 1 Requested Encounter Details Date Type Department Care Team Description 07/20/2021 TH Visit Neurosurgery at [facility] Lavinia Giron Meningioma (TeleHealth) [facility] Megan [place]én[place] [address] [facility] [phone] [address] [place], [place] [address] (Wo rk) Social History Tobacco [...] on file documented as of this encounter Progress Notes Lavinia Giron, EDITING COMPUTER PUBLISHER - 07/20/2021 11:30 AM EDT Name: Shea Kraus : 1950 PCP: Edil Ramírez DO REF: Edil Ramírez Date of Service: 07/20/2021 Annual surveillance HISTORY: Shea Kraus is a 71 year old female who was found to have an incidental fall seen meningioma during a work-up for hypertension in 2019. She has been followed radiographically since finding andhas remained asymptomatic. Shea reports that she continues to have no symptoms and is doing quite well. She had already read her results on the portal and had question regarding possible small hemangioma in the right frontal bone. We discussed what a hemangioma is and that it has not been present on other imaging and is likely not present. PHYSICAL EXAM: Tele-health visit, no physical performed. There were no vitals taken for this visit.. IMAGING & OTHER RESULTS: EXAMINATION: MRI BRAIN WWO CONTRAST (GENERIC) ?? CLINICAL HISTORY: Brain/INSTRUMENT LENS GRINDER neoplasm, surveillance , meningioma ?? COMPARISON: MRI brain with and without contrast from 07/21/2020 ?? FINDINGS: Unchanged size and appearance of the left parafalcine meningioma as compared to MRI from 07/21/2020, measuring 0.9 cm x 0.7 cm. No associated mass effect. No new intracranial lesion. No diffusion-weighted abnormalities. Punctate focus of susceptibility related signal loss in the subcortical white matter of the posterior left frontal lobe reflecting remote microhemorrhage. ?? Similar number of T2 hyperintense foci within the deep and periventricular white matter consistent with mild to moderate sequela of chronic microvascular ischemic changes. Mild diffuse volume loss. Intracranial flow voids are unremarkable. Mild ethmoid air cell mucosal thickening. Visualized paranasal sinuses and mastoid air cells are otherwise clear. The orbits appear normal. Possible small hemangioma in the right frontal bone. Regional marrow signal is unremarkable. ?? IMPRESSION Unchanged left parafalcine meningioma without mass effect. PLAN: RTC in one year with MRI Lavinia Giron APRN documented in this encounter Plan of Treatment Scheduled Orders Name Type Priority Associated Diagnoses Order S chedule MRI Brain wwo Contrast Imaging Routine Meningioma Expec leonardo: 07/20/2022, (Generic) Expires: 2022 Creatinine Lab Routine Meningioma Expected: 07/20, Expires: 2022 Scheduled Procedures Name Priority Associated Diagnoses Date/Time COLONOSCOPY, DIAGNOSTIC screening same day documented as of this encounter Visit Diagnoses Diagnosis Meningioma Benign neoplasm of cerebral meninges documented in this encounter Care Teams Turning Machine Operator Relationship Specialty Start Date End Date Edil Ramírez DO PCP - General 10/30/[address] [place] [address] documented as of this encounter
--- OUTSIDE RECORDS SUMMARY | 2022-08-19 02:42 | XMS_ITS | Encounter Summary ---
:1950 Author Organization [facility] [place] [address] Care Team Providers Name Role Phone DarrellEdil larose Primary Care Provider Encounter Details Date Type Department Care Team Description 07/21/2020 Telephone Neurosurgery at [facility] [place] [address] Social History Tobacco Use Types Packs/Day [...] this encounter Miscellaneous Notes Telephone Encounter - Jessa Vizcarra - 07/24/2020 11:38 AM EDT Scheduled appts and sent [facility] message with appt details. Telephone Encounter - Maddie Looney - 07/23/2020 11:49 AM EDT Safety questions updated. Per [facility]: No date or time restrictions, but prefer an appointment no earlier than 10 am. Thank you, ?? Shea Telephone Encounter - Jessa Vizcarra - 07/22/2020 1:26 PM EDT [facility] message sent with MRI questionnaire. Postponing 3 weeks to allow time for completion. Telephone Encounter - Tonya Terrell - 07/21/2020 1:23 PM EDT Patient needs f/u appointment(s): With GUNNAR/AP on/around 07/21/21 1yr TOV, s/p Meningioma, MRI Brain wwo prior ~~~~~~~~~~~~~~~~~~~~~~~~~~~~~~~~~~~~~~~~~~~~~~~~~~~~~ Matthew Jimenez MD Sent: MonJuly 21, 2020 ??1:12 PM To: P [facility] Neurosurgery [place] ?? Message MRI brain +/- 1 year. ??I can call Telephone Encounter - Tonya Terrell - 07/21/2020 1:22 PM EDT ----- Message from Matthew Jimenez MD sent at 07/21/2020 1:12 PM EDT ----- MRI brain +/- 1 year. I can call documented in this encounter Plan of Treatment Scheduled Procedures Name Priority Associated Diagnoses Date/Time COLONOSCOPY, DIAGNOSTIC screening same day documented as of this encounter Visit Diagnoses Not on filedocumented in this encounter Care Teams Test Developer Relationship Specialty Start Date End Date Edil Ramírez DO PCP - General 10/30/[address] [place] [address] documented as of this encounter
--- OUTSIDE RECORDS SUMMARY | 2022-08-19 02:42 | XMS_ITS | Clinical Summary ---
:1950 Author Organization [facility] [place] [address] Care Team Providers Name Role Phone DarrellEdil larose Primary Care Provider Allergies No known active allergies Medications Medication Sig Dispensed Refills Start Date End Date Status losartan (Cozaar) 50 mg Take 50 mg by 0 Active Tablet mouth daily. amLODIPine (NORVASC) 5 Take 5 mg by 0 Active mg TabletIndications: mouth daily. Unsure of actual dosage Indications: Unsure of actual dosage rosuvastatin (Crestor) Take 5 mg by 0 Active 5 mg Tablet mouth daily. Active Problems No known active problems Encounters Date Type Specialty Care Team Description 07/18/2022 Telephone Neurosurgery Maddie Looney from Last 3 Months Immunizations Name Administration Dates Next Due Moderna Covid-19 (Biofuels Operations Manager 100mcg) Vaccine 08/13/2021, 2020, 12/10/2020 Family History Medical History Relation Comments Breast Cancer Neg Hx Social History Tobacco Use Types Packs/Day Years [...] Assigned at Date Recorded Not on file Last Filed Vital Signs Vital Sign Reading Time Taken Comments Blood Pressure 158/82 07/16/2019 2:55 PM EDT Pulse 106 07/16/2019 2:55 PM EDT Temperature 36.8 ??C (98.2 ??F) 07/11/2019 1:37 AM EDT Respiratory Rate 16 07/11/2019 1:37 AM EDT Oxygen Saturation 97% 07/11/2019 1:37 AM EDT Inhaled Oxygen Concentration - - Weight 53 kg (116 lb 13.5 oz) 07/16/2019 2:55 PM EDT Height 160 cm (5' 3) 07/16/2019 2:55 PM EDT Body Mass Index 20.7 07/16/2019 2:55 PM EDT Plan of Treatment Scheduled Procedures Name Priority Associated Diagnoses Date/Time COLONOSCOPY, DIAGNOSTIC screening same day Health Maintenance Due Date Last Done Comments Hepatitis C Screening 1968 Tdap adult 1969 Tetanus vaccine 1969 Breast Cancer Share Decision 1990 Needed Colonoscopy 1995 Zoster vaccine (1 of 2) 2000 Advance Directive 2005 Bone Density Scan 2015 Pneumoccocal Vaccine: 65+ (1 - 2015 PCV) Covid-19 Vaccine (4 - Booster for 10/08/2021 08/13/2021, , Moderna series) 12/10/2020 Influenza (Flu) vaccine (1 of 1 - 06/16/2022 Influenza standard series) Breast Cancer screening 08/17/2023 08/17/2021, 07/21/2020, 04/01/2019, Additional history exists Insurance Payer Benefit Plan / Subscriber ID Effective Dates Phone Addre ss Type Group MVP MANAGED MVP MANAGED [id number] 2019-Presen [phone] [id number] MEDICARE MEDICARE t [address] [place] [address] Care Teams Adventure Guide Relationship Specialty Start Date End Date Edil Ramírez DO PCP - General 10/30/[address] [place] [address]
--- OUTSIDE RECORDS SUMMARY | 2022-08-19 02:42 | XMS_ITS | Encounter Summary ---
:1950 Author Organization [facility] [place] [address] Care Team Providers Name Role Phone Edil Ramírez DO Primary Care Provider Encounter Details Date Type Department Care Team Description 08/17/2021 Hospital Encounter Mammography/DXA at [facility] Ramírez, Visit for screening [facility] DO mammogram [address] [address] [phone] Social History Tobacco Use Types Packs/Day Years [...] Sig Dispensed Refills Start Date End Date rosuvastatin (Crestor) 5 mg Take 5 mg by mouth 0 Tablet daily. losartan (Cozaar) 50 mg Take 50 mg [...] Diagnosis Comme nts MAMMO SCREENING CAD Routine 08/17/2021 3:45 PM Visit for vitor machado Results for this AND JOHN BILATERAL EDT mammogram procedure are in the results section. documented in this encounter Results Mammo Screening Cad and John Bilateral (08/17/2021 3:45 PM EDT) Anatomical Region Laterality Modality Breast Bilateral Mammography Specimen (Source) Anatomical Location Collection Method / Collectio n Time Received Time / Laterality Volume Narrative 08/18/2021 9:10 AM EDT BILATERAL MAMMOGRAPHY REASON FOR EXAM: Screening [...] CONCLUSION: No mammographic evidence of malignancy. RECOMMENDATION: Regular screening mammograms starting be tween age 40 and 50 reduces the risk of from breast cancer. All screening tests have both risks and benefits. These risks and benefits should be assessed for each individual p atient through discussion with their provider to determine their prefer red breast cancer screening schedule. Women should report any breast changes t o a health care provider right away. Some women, because of their family hist ory, a genetic tendency, or other factors, should be screened with annual breast MRI as well as with mammograms. (The number of women who fal l into this category is very small). Patients and health care provide rs should discuss each patient? s history to decide if earlier screening a nd/or breast MRI are appropriate. Screening should continue as long as a lev smith is in good health and is expected to live 10 years or longer. Screening mammography may not detect 10- 15% of breast cancers. A result letter has been sent to this pa olaf by [facility]. BIRADS CATEGORY 1: NEGATIVE Electronically signed by: ALEXANDRA PARISH MD Edil Darrell DO IMG MAMMO ORDERABLES documented in this encounter Visit Diagnoses Diagnosis Visit for screening mammogram Other screening mammogram documented in this encounter Care Teams Coil Winder Relationship Specialty Start Date End Date Edil Ramírez DO PCP - General 10/30/[address] [place] [address] [address] [facility] 1 [place] [address] documented as of this encounter
--- OUTSIDE RECORDS SUMMARY | 2022-08-19 02:42 | XMS_ITS | Encounter Summary ---
:1950 Author Organization [facility] [place] [address] Care Team Providers Name Role Phone Edil Ramírez DO Primary Care Provider Encounter Details Date Type Department Care Team Description 07/21/2020 Hospital Encounter Mammography/DXA at Taamra Kemp Encounter for [facility] screening mammogram [address] for [facility] 3RD [facility] neoplasm of breast [facility], [address] [place] [address] [phone] Social History Tobacco Use Types Packs/Day Years [...] Diagnosis Comme nts MAMMO SCREENING CAD Routine 07/21/2020 10:06 AM Encounter for Results for this AND JOHN BILATERAL EDT screening mammogram pr ocedure are in for malignant the results neoplasm of breast section. documented in this encounter Results Mammo Screening Cad and John Bilateral (07/21/2020 10:06 AM EDT) Anatomical Region Laterality Modality Breast Bilateral Mammography Specimen (Source) Anatomical Location Collection Method / Collectio n Time Received Time / Laterality Volume Narrative 07/21/2020 10:13 AM EDT Bilateral mammography Reason for exam: LAST MAMMO 04/01/19; ROU JAMES MAMMO Technique: CC and MLO views were obtaine d of each breast using standard 2-D mammography as well as 3-D tomosynthesis . Computer aided detection was used. Comparison: This is compared with prior images. Findings: The breasts are heterogeneousl y dense, which may obscure small masses. There are no suspicious microcalcificati ons, masses, or areas of distortion. The pattern is stable. Multiple stable bilat eral focal asymmetries, benign-appearing. Conclusion: No mammographic evidence of malignancy. Recommendation: Routine screening. BI-RADS Category 2: Benign findings. * ??Regular screening mammograms startin g between age 40 and 50 reduces the risk of from breast cancer. * ??All screening tests have both risks and benefits. These risks and benefits should be assessed for each individual p atient through discussion with their provider to determine their preferred [facility] cancer screening schedule. * ??Women should report any breast mccormack es to a health care provider right away. * ??Some women, because of their family history, a genetic tendency, or other factors, should be screened with annual breast MRI as well as with mammograms. (The number of women who fall into this category is very small). Patients and health care providers should discuss eac h patients history to decide if earlier screening and/or breast MRI are appropri ate. * ??Screening should continue as long as a woman is in good health and is expected to live 10 years or longer. * ??Screening mammography may not detect 10-15% of breast cancers. Thank you for letting us participate in the care of this patient. For questions regarding this report, please contact e number below. ? Tamara Kemp APRN IMG MAMMO ORDERABLES documented in this encounter Visit Diagnoses Diagnosis Encounter for screening mammogram for ma lignant neoplasm of breast Other screening mammogram documented in this encounter Care Teams Rod Filler Relationship Specialty Start Date End Date Edil Ramírez DO PCP - General 10/30/13 [address] [place] [address] documented as of this encounter
--- OUTSIDE RECORDS SUMMARY | 2022-08-19 02:42 | XMS_ITS | Encounter Summary ---
:1950 Author Organization [facility] [place] [address] Care Team Providers Name Role Phone Edil Ramírez DO Primary Care Provider Encounter Details Date Type Department Care Team Description 08/23/2019 Hospital Encounter Non-Invasive Edil Ramírez [facility] [address] [phone] [address] (Work) [phone] Social History Tobacco Use Types Packs/Day Years [...] Name Priority Date/Time Associated Diagnosis Comme nts NUCLEAR EXERCISE STRESS Routine 08/29/2019 8:49 AM EST Syncope and collapse CARDIOLOGY documented in this encounter Results Nuclear Exercise Stress Cardiology (08/29/2019 8:49 AM EST) Anatomical Region Laterality Modality Other Specimen (Source) Anatomical Location Collection Method / Collectio n Time Received Time / Laterality Volume Narrative This result has an attachment that is no t available. Edil Ramírez DO CARDIAC SERVICES ORDERABLES documented in this encounter Visit Diagnoses Diagnosis Syncope and collapse documented in this encounter Care Teams Collar Turner Operator Relationship Specialty Start Date End Date Edil Ramírez DO PCP - General 10/30/13 [address] [facility] [place] [address] documented as of this encounter
--- OUTSIDE RECORDS SUMMARY | 2022-08-19 02:42 | XMS_ITS | Encounter Summary ---
:1950 [place] [address] Care Team Providers Name Role Phone Edil Ramírez DO Primary Care Provider Encounter Details Date Type Department Care Team Description 09/09/2015 Hospital Encounter Radiology Library Robert Harrisonening breast at [facility] [place] Maxx examination [facility] [address] [place] DIAGNOSIC [address] RADIOLOGY [phone] [place] [address] Social History Tobacco Use Types Packs/Day Years Used Date Never Smoker Sex Assigned at Date Recorded Not on file documented as of this encounter Plan of Treatment Scheduled Procedures Name Priority Associated Diagnoses Date/Time COLONOSCOPY, DIAGNOSTIC screening same day documented as of this encounter Procedures Procedure Name Priority Date/Time Associated Diagnosis Comme nts FILM LIBRARY Routine 09/09/2015 12:00 AM Screening breast Resu lts for this STORAGE ONLY MAMMO EST examination procedure are in the results section. documented in this encounter Results Film Library- Storage Only Mammo (09/09/2015 12:00 AM EST) Specimen (Source) Anatomical Location Collection Method / Collectio n Time Received Time / Laterality Volume Narrative [facility] - 02/20/2018 4:10 PM EDT This exam is for storage only and is aut o-finalizing. Robert Harrison MD IMG FILM LIBRARY ORDERABLES Performing Organization Address City/State/ZIP Code Phon e Number [place], [place] documented in this encounter Visit Diagnoses Diagnosis Screening breast examination (Not by Lucinda watkins) Other screening breast examination documented in this encounter Care Teams Data Integrity Consultant Relationship Specialty Start Date End Date Edil Ramírez DO PCP - General 10/30/13 [address] [place] [address] documented as of this encounter
--- OUTSIDE RECORDS SUMMARY | 2022-08-19 02:42 | XMS_ITS | Encounter Summary ---
:1950 Author Organization [facility] [place] [address] Care Team Providers Name Role Phone DarrellEdil larose Primary Care Provider Reason for Referral Diagnostic Test (Routine) - Closed Specialty Diagnoses / Procedures Referred By Contact Refer red To Contact Radiology Diagnoses Meningioma Matthew Jimenez MD [facility] Rad Mri Procedures MRI Brain wwo Contrast (Generic) [facility] [place] [address] [place] [address] Referral ID Status Reason Start Date Expiration Date Visits V isits Requested Authorized [id number] Closed Specialty 07/21/2020 01/19/2022 1 1 Service Requested Reason for Visit Reason Comments Brain Tumor Encounter Details Date Type Department Care Team Description 07/21/2020 TH Visit Neurosurgery at [facility] [place] Matthew Jimenez, Meningioma (TeleHealth) [facility] [place] [address] [facility] [phone] NEUROSURGERY [place], [place] [address] (Wo rk) Social History Tobacco [...] documented as of this encounter Progress Notes Matthew Jimenez MD - 07/21/2020 1:30 PM EDT I just spoke with Shea on the phone. She is a 70-year-old female who was found to have an incidental fall seen meningioma during a work-up for hypertension last year. She comes in for a routine follow-up. She has no new symptoms to speak of. On my review, I see no significant change in the overall shape or size of the falcine meningioma. Again it measures approximately 6 mm in its greatest dimension. I recommended a follow-up MRI scan in 1 year. She is agreeable to this. She will let us know if any symptoms occur. documented in this encounter Plan of Treatment Scheduled Procedures Name Priority Associated Diagnoses Date/Time COLONOSCOPY, DIAGNOSTIC screening same day documented as of this encounter Results MRI Brain wwo Contrast (Generic) (07/20/2021 9:10 AM EDT) Anatomical Region Laterality Modality Head Magnetic Resonance Specimen (Source) Anatomical Location Collection Method / Collectio n Time Received Time / Laterality Volume Impressions 07/20/2021 10:22 AM EDT Unchanged left parafalcine meningioma without mass effect. I have personally reviewed the image(s) and the resident's interpretation and agree with the findings, Cynthia Avila at 07/20/2021 10:22 AM Thank you for letting us participate in the care of this patient. ??If you are a health care provider and have any questi ons regarding this report, please contact the number below. ??For patients who have questions please contact the health complex care nurse practitioner that requested your imaging first. ? 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 COMPARISON: MRI brain with and without contrast from 07/21/2020 FINDINGS: Unchanged size and appearance of the lef t parafalcine meningioma as compared to MRI from 07/21/2020, measuring 0.9 cm x 0 .7 cm. No associated mass effect. No new intracranial lesion. No diffusion-weight ed abnormalities. Punctate focus of susceptibility related signal loss in th e subcortical white matter of the posterior left frontal lobe reflecting r emote microhemorrhage. Similar number of T2 hyperintense foci w ithin the deep and periventricular white matter consistent with mild to moderate sequela of chronic microvascular ischemic changes. Mild diffuse volume lo ss. Intracranial flow voids are unremarkable. Mild ethmoid air cell muco mark thickening. Visualized paranasal sinuses and mastoid air cells are otherw ise clear. The orbits appear normal. Possible small hemangioma in the right f rontal bone. Regional marrow signal is unremarkable. Procedure Note Cynthia Avila MD - 07/20/2021Form atting of this note might be different from the original. 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 COMPARISON: MRI brain with and without contrast from 07/21/2020 FINDINGS: Unchanged size and appearance of the lef t parafalcine meningioma as compared to MRI from 07/21/2020, measuring 0.9 cm x 0 .7 cm. No associated mass effect. No new intracranial lesion. No diffusion-weight ed abnormalities. Punctate focus of susceptibility related signal loss in th e subcortical white matter of the posterior left frontal lobe reflecting r emote microhemorrhage. Similar number of T2 hyperintense foci w ithin the deep and periventricular white matter consistent with mild to moderate sequela of chronic microvascular ischemic changes. Mild diffuse volume lo ss. Intracranial flow voids are unremarkable. Mild ethmoid air cell muco mark thickening. Visualized paranasal sinuses and mastoid air cells are otherw ise clear. The orbits appear normal. Possible small hemangioma in the right f rontal bone. Regional marrow signal is unremarkable. IMPRESSION Unchanged left parafalcine meningioma wi thout mass effect. I have personally reviewed the image(s) and the resident's interpretation and agree with the findings, Cynthia Avila at 07/20/2021 10:22 AM Thank you for letting us participate in the care of this patient. If you are a health care provider and have any questi ons regarding this report, please contact the number below. For patients w ho have questions please contact the health complex care nurse practitioner that requested your imaging first. Matthew Jimenez MD IMG MRI ORDERABLES documented in this encounter Visit Diagnoses Diagnosis Meningioma Benign neoplasm of cerebral meninges Meningioma Benign neoplasm of cerebral meninges documented in this encounter Care Teams Infrastructure Project Manager Relationship Specialty Start Date End Date Edil Ramírez DO PCP - General 10/30/[address] [place] [address] documented as of this encounter
--- OUTSIDE RECORDS SUMMARY | 2022-08-19 02:42 | XMS_ITS | Encounter Summary ---
:1950 Author Organization [place] [address] Care Team Providers Name Role Phone Edil Ramírez DO Primary Care Provider Reason for Visit Diagnostic Test (Routine) - Closed Specialty Diagnoses / Procedures Referred By Contact Refer red To Contact Radiology Diagnoses Syncope and collapse Edil Ramírez DO [facility] Rad Nuclear Med Procedures NM Exercise Stress Myocardial Perfusion [address] [place] [address] Phone: Fax: Referral ID Status Reason Start Date Expiration Date Visits V isits Requested Authorized [id number] Closed Specialty 07/19/2019 07/18/2020 1 1 Service Requested Encounter Details Date Type Department Care Team Description 08/29/2019 Hospital Encounter Nuclear Medicine at Edil Ramírez DO [facility] [address] [facility] 1 [place] [address] [place] [address] [phone] Social History Tobacco Use Types Packs/Day Years [...] the results section. documented in this encounter Visit Diagnoses Not on filedocumented in this encounter Administered Medications Inactive Administered Medications - up to 3 most recent administrations Medication Order MAR Action Action Date Dose Rate Site technetium (Tc-99m) sestamibi Given 08/29/2019 8:35 AM EST 23.7 mCi injection 23.7 mCi 23.7 mCi, Intravenous, ONCE PRN, 1 dose, Starting on Saira 08/29/19 at 0835, Until Saira 08/29/19 at 0835, Per Protocol, Routine documented in this encounter Care Teams Weatherization Director Relationship Specialty Start Date End Date Edil Ramírez DO PCP - General 10/30/[address] [place] [address] documented as of this encounter
--- OUTSIDE RECORDS SUMMARY | 2022-08-19 02:42 | XMS_ITS | Encounter Summary ---
:1950 Author Organization [facility] [place] [address] Care Team Providers Name Role Phone Edil Ramírez DO Primary Care Provider Reason for Referral Diagnostic Test (Routine) - Closed Specialty Diagnoses / Procedures Referred By Contact Refer red To Contact Radiology Diagnoses Meningioma Matthew Jimenez MD [facility] Rad Mri Procedures MRI Brain wwo Contrast (Generic) [facility] [place] [address] [place] [address] Referral ID Status Reason Start Date Expiration Date Visits V isits Requested Authorized [id number] Closed Specialty 07/21/2020 01/17/2021 1 1 Service Requested Reason for Visit Diagnostic Test (Routine) - Closed Specialty Diagnoses / Procedures Referred By Contact Refer red To Contact Radiology Diagnoses Meningioma Matthew Jimenez MD [facility] Rad Mri Procedures MRI Brain wwo Contrast (Generic) [facility] [place] [address] [place] [address] Referral ID Status Reason Start Date Expiration Date Visits V isits Requested Authorized [id number] Closed Specialty 07/21/2020 01/17/2021 1 1 Service Requested Encounter Details Date Type Department Care Team Description 07/21/2020 Hospital Encounter MRI at [facility] Matthew Jimenez, Meningioma [facility] [place] [address] NEUROSURGERY [place], [place] [address] (Wo rk) Social History Tobacco [...] Name Priority Date/Time Associated Diagnosis Comme nts MRI BRAIN WWO Routine 07/21/2020 11:19 AM Meningioma Results for this CONTRAST (GENERIC) EDT procedure are in the results section. documented in this encounter Results MRI Brain wwo Contrast [...] report, please contact e number below. ? Electronically signed by: FABIAN Elliott [facility] ([phone]), at 07/21/2020 1:31 PM Narrative 07/21/2020 1:31 PM EDT EXAMINATION: MRI [...] of cerebral meninges documented in this encounter Administered Medications Inactive Administered Medications - up to 3 most recent administrations Medication Order MAR Action Action Date Dose Rate Site gadoterate meglumine (DOTAREM) Given 07/21/2020 11:30 AM EDT 10 mLs 0.5 mmol/mL (376.9 mg/mL) injection 0.2 mL/kg/dose 0.2 mL/kg/dose, Intravenous, ONCE PRN, 1 dose, Starting on 07/21/20 at 1119, Until Tu07/21/20 at 1130, Per Protocol, Radiology Contrast, Routine documented in this encounter Care Teams Retail Security Professional Relationship Specialty Start Date End Date Edil Ramírez DO PCP - General 10/30/[address] [place] [address] documented as of this encounter
--- OUTSIDE RECORDS SUMMARY | 2022-08-19 02:42 | XMS_ITS | Encounter Summary ---
:1950 Author Organization [facility] [address] Care Team Providers Name Role Phone DarrellEdil larose Primary Care Provider Reason for Visit Reason Comments Skin Cancer Examination Encounter Details Date Type Department Care Team Description 12/30/2021 Office Visit Dermatology at [facility]; Lawrence Bach MD Seborrheic keratoses; [address] [facility] Photoaging of skin; [place] [address] Dermal nevus of other site [phone] [facility] [place], [place] [address] Social History Tobacco Use Types [...] documented as of this encounter Progress Notes Cee Magana MD - 12/30/2021 10:15 AM EDT Images from the original note were not included. DEPARTMENT OF DERMATOLOGY Medical Dermatology Clinic Provider: CEE MAGANA MD Patient's preferred name Shea Preferred contact method for results [x]Phone []myD-H []Letter Detailed phone message OK? Yes Are there any other people with whom we may discuss your care? 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 Patient is new, seen remotely, and self-referred to the clinic for a waist up exam with the following concerns: - Lesion on the left lower eyelid that has not changed since previously evaluated. - She also has a lesion in the right axilla that she would like examined Of note, patient was offered a full skin exam, but she declined as her only areas of concern involvethe waist up. Medications: Reviewed in eD-H Allergies: Reviewed in eD-H Skin Examination: Waist-up skin examination: Patient was asked to disrobe to the level of their comfort. Patient elected to remain clothed below the waist. Examination of the scalp, hair, face, ears, neck, back, chest, abdomen, and upper extremities was normal with the exception of the findings below. Assessment/Plan A. Seborrheic Keratoses - Stuck on, waxy papules on the trunk and extremities. - Discussed benign nature of lesions and provided reassurance. No treatment necessary at this time. B. Dermal Nevus - Brown, fleshy papule in the right axilla. - Discussed benign nature of lesion and provided reassurance. No treatment necessary at this time. C. Lentigines - Scattered light-brown, evenly pigmented, well-demarcated macules on sun-exposed areas of the trunk and upper extremities. - No worrisome pigmented lesions. Discussed benign nature of lesions and provided reassurance. Will continue to monitor. D. Photoaging - Photoaging on the face. - Answered questions, Recommend retinol use at night Other: ??? Sun protection discussed (protective clothing and SPF30+ broad-spectrum sunscreen) RTC: 2-3 years for FSE []Note routed to workers compensation legal secretary [x]Recall placed in scheduling system []Appointment scheduled at checkout Scribe attestation: Mignon Pena CMA has performed the documentation for this encounter in the presence of and acting as a scribe for CEE MAGANA MD. I performed the above scribed service and agree with the accuracy of the documentation in this encounter. Reviewed and signed by: CEE MAGANA MD Dermatology [facility] documented in this encounter Plan of Treatment Scheduled Procedures Name Priority Associated Diagnoses Date/Time COLONOSCOPY, DIAGNOSTIC screening same day documented as of this encounter Visit Diagnoses Diagnosis Lentigines Other dyschromia Seborrheic keratoses Photoaging of skin Other chronic dermatitis due to solar ra diation Dermal nevus of other site Benign neoplasm of other specified sites of skin documented in this encounter Care Teams Ladle Liner Helper Relationship Specialty Start Date End Date Edil Ramírez DO PCP - General 10/30/13 [address] [place] [address] documented as of this encounter
--- OUTSIDE RECORDS SUMMARY | 2022-08-19 02:42 | XMS_ITS | Encounter Summary ---
:1950 Author Organization [facility] [place] [address] Care Team Providers Name Role Phone Edil Ramírez DO Primary Care Provider Reason for Visit Diagnostic Test (Routine) - Closed Specialty Diagnoses / Procedures Referred By Contact Refer red To Contact Radiology Diagnoses Syncope and collapse Edil Ramírez DO [facility] Rad Nuclear Med Procedures NM Exercise Stress Myocardial Perfusion [address] [place] [address] Phone: Fax: Referral ID Status Reason Start Date Expiration Date Visits V isits Requested Authorized [id number] Closed Specialty 07/19/2019 07/18/2020 1 1 Service Requested Encounter Details Date Type Department Care Team Description 08/29/2019 Hospital Encounter Nuclear Medicine at Edil Ramírez DO [facility] [address] [facility] 1 [place] [address] [place] [address] [phone] Social History Tobacco Use Types Packs/Day Years [...] Rate Site technetium (Tc-99m) sestamibi Given 08/29/2019 7:08 AM EST 8.2 m Ci injection 8.2 mCi 8.2 mCi, Intravenous, ONCE PRN, 1 dose, Starting on Saira 08/29/19 at 0708, Until Saira 08/29/19 at 0708, Per Protocol, IV: R-ACF, Routine documented in this encounter Care Teams Crew Manager Relationship Specialty Start Date End Date Edil Ramírez DO PCP - General 10/30/[address] [place] [address] documented as of this encounter
--- OUTSIDE RECORDS SUMMARY | 2022-08-19 02:42 | XMS_ITS | Encounter Summary ---
:1950 Author Organization [facility] [place] [address] Care Team Providers Name Role Phone DarrellEdil larose Primary Care Provider Encounter Details Date Type Department Care Team Description 07/18/2022 Telephone Neurosurgery at [facility] [place] [address] Social History Tobacco Use Types Packs/Day [...] this encounter Miscellaneous Notes Telephone Encounter - Mignon Beasley - 07/18/2022 1:35 PM EDT 2 yr recall entered in edh. Closing encounter Telephone Encounter - Maddie Looney - 07/18/2022 12:05 PM EDT Dony Jimenez, Patient asks if it would be appropriate to stretch repeat MRI to every other year. Please advise. Al Perkins Telephone Encounter - Maddie Looney - 07/18/2022 12:05 PM EDT Images from the original note were not included. documented in this encounter Plan of Treatment Scheduled Procedures Name Priority Associated Diagnoses Date/Time COLONOSCOPY, DIAGNOSTIC screening same day documented as of this encounter Visit Diagnoses Not on filedocumented in this encounter Care Teams Corncob Pipe Manufacturing Supervisor Relationship Specialty Start Date End Date Edil Ramírez DO PCP - General 10/30/13 [address] [facility] [address] [place] [address] documented as of this encounter
--- OUTSIDE RECORDS SUMMARY | 2022-08-19 02:42 | XMS_ITS | Encounter Summary ---
:1950 Author Organization [facility] [place] [address] Care Team Providers Name Role Phone DarrellEdil larose Primary Care Provider Encounter Details Date Type Department Care Team Description 04/01/2019 Hospital Encounter Mammography/DXA at [facility] for screening [facility] MD Felisha mammogram [facility] [address] [place] [id number] [phone] Social History Tobacco Use Types Packs/Day Years [...] Diagnosis Comme nts MAMMO SCREENING CAD Routine 04/01/2019 8:38 AM Visit for vitor machado Results for this AND JOHN BILATERAL EDT mammogram procedure are in the results section. documented in this encounter Results Mammo Screening Cad and John Bilateral (04/01/2019 8:38 AM EDT) Anatomical Region Laterality Modality Breast Bilateral Mammography Specimen (Source) Anatomical Location Collection Method / Collectio n Time Received Time / Laterality Volume Narrative 04/01/2019 1:21 PM EDT BILATERAL MAMMOGRAPHY REASON FOR EXAM: [...] CONCLUSION: No mammographic evidence of malignancy. RECOMMENDATION: Medical organizations ag ree that annual screening mammography beginning at age 40 saves th e most lives. The risks of screening are negligible compared to dyi ng from breast cancer or suffering from more aggressive treatment required when detected at a later stage. No woman is at low risk for breast cancer. Some women, because of their family history, a genetic tendency, or c ertain other factors, should be screened with breast MRI along with mamm ograms. (The number of women who fall into this category is very small). The patient and health care provider should discuss the patient hist ory and decide if earlier screening and breast MRI are appropriate . Screening should continue as long as a woman is in good health and is expected to live 10 years or longer. Screening mammography may not de tect 10-15% of breast cancers. Women should report any breast changes t o a health care provider right away. A result letter has been sent to this pa olaf by [facility]. BIRADS CATEGORY 1: NEGATIVE Lori Tee MD IMG MAMMO ORDERABLES documented in this encounter Visit Diagnoses Diagnosis Visit for screening mammogram Other screening mammogram documented in this encounter Care Teams Sheet Rock Layer Relationship Specialty Start Date End Date Edil Ramírez DO PCP - General 10/30/[address] [facility] 1 [place] [address] documented as of this encounter
--- OUTSIDE RECORDS SUMMARY | 2022-08-19 02:42 | XMS_ITS | Encounter Summary ---
:1950 Author Organization [facility] [place] [address] Care Team Providers Name Role Phone Edil Ramírez DO Primary Care Provider Reason for Referral Diagnostic Test (Routine) - Closed Specialty Diagnoses / Procedures Referred By Contact Refer red To Contact Radiology Diagnoses Syncope and collapse Edil Ramírez DO [facility] Rad Nuclear Med Procedures NM Exercise Stress CT Component [address] [place], [place] [address] [place] [address] Phone: Fax: Referral ID Status Reason Start Date Expiration Date Visits V isits Requested Authorized [id number] Closed Specialty 07/17/2019 10/15/2019 1 1 Service Requested Reason for Visit Diagnostic Test (Routine) - Closed Specialty Diagnoses / Procedures Referred By Contact Refer red To Contact Radiology Diagnoses Syncope and collapse Edil Ramírez DO [facility] Rad Nuclear Med Procedures NM Exercise Stress CT Component [address] [place] [address] [address] [place] [address] Phone: Fax: Referral ID Status Reason Start Date Expiration Date Visits V isits Requested Authorized [id number] Closed Specialty 07/17/2019 10/15/2019 1 1 Service Requested Encounter Details Date Type Department Care Team Description 08/23/2019 Hospital Encounter Nuclear Medicine at [facility] as, Syncope and Megha Oliveira DO collapse [facility] [address] [place], [place] [id number] [phone] Social History Tobacco Use Types Packs/Day Years [...] e number below. ? Electronically signed by: Reyes Thakkar [facility] ([phone]), at 08/29/2019 3:01 PM Narrative 08/29/2019 3:01 PM EST EXAMINATION: NM [...] this report, please contact e number below. Electronically signed by: Reyes Thakkar [facility] ([phone]), at 08/29/2019 3:01 PM Edil LUBIN NM ORDERABLES documented in this encounter Visit Diagnoses Diagnosis Syncope and collapse documented in this encounter Care Teams Hand Braille Transcriber Relationship Specialty Start Date End Date Edil Ramírez DO PCP - General 10/30/[address] [place] [address] [facility] 1 [place] [address] documented as of this encounter
--- OUTSIDE RECORDS SUMMARY | 2022-08-19 02:42 | XMS_ITS | Encounter Summary ---
:1950 Author Organization [facility] [place] [address] Care Team Providers Name Role Phone DarrellEdil Primary Care Provider Reason for Visit Reason Comments Skin Check Full skin exam Encounter Details Date Type Department Care Team Description 11/21/2017 Office Visit Dermatology at [facility] Carol Magana Mt oplasm of uncertain behavior; Lawrence Bach MD [place] (actinic keratosis); [address] [facility] (seborrheic keratosis); [place] [address] Lentigines; [phone] [facility] Multiple benign nevi [address] [place], [place] [address] Social History Tobacco Use Types Packs/Day Years Used Date Never Smoker Smokeless Tobacco: Never Used Sex Assigned at Date Recorded Not on file documented as of this encounter Patient Instructions Patient InstructionsVenecia Eric - 11/21/2017 4:30 PM EST Treatment and Wound Care Instructions Your treatment today: You have had a shave biopsy of your skin, which is a removal of tissue for examination under a microscope. This wound will heal without stitches. Allow 3-6 weeks for the wound to heal. If bleeding occurs, hold firm pressure against the wound for 15 minutes. If bleeding continues, calls the office or go to your local emergency room. Please allow 1-2 weeks for the biopsy results to return. Your physician or nurse will contact you with the results by phone or letter; follow-up will be discussed at that time. Wound Care Instructions: You will need to keep the dressing placed over the wound dry and intact for 24 hours. Afterwards, perform the following wound care daily: ?? Wash your hands before changing the dressing. ?? Remove the bandage and clean the area with mild soap and water, then gently pat the area dry. ?? Apply a small amount of Vaseline to the area, then cover the wound with a band-aid. Change your dressing daily until the wound is fully healed. ?? A small amount of yellow drainage is part of normal healing. The area might appear as a small depression with redness around the edge of the wound. This is normal. ?? Please contact the office you you notice any of the following signs of infection: increased tenderness, pain, drainage, or redness that becomes hot or hard around the wound. If you have further questions or concerns, please call the office at [phone]. If it is after 5PM, or a holiday or weekend, please call [phone] and ask for the Welder Manufacture on-call. documented in this encounter Progress Notes Carol Magana MD - 11/28/2017 12:40 PM EST Damaris, The biopsy shows a benign lentigo or sun freckle. No further treatment is needed. Please notify patient. Thank you, DTB Carol Magana MD - 11/21/2017 4:30 PM EST Images from the original note were not included. DERMATOLOGY ESTABLISHED PATIENT CLINIC NOTE Date of service: 11/21/2017 Shea Kraus : 1950 Provider: Carol Magana MD Chief Complaint Patient presents with ??? Skin Check Full skin exam SKIN HISTORY: Benign nevi - excised, per patient Gamb[place] angiomas Dermatofibroma Solar lentigines Photo-aging HPI Sheanat Kraus is a 67 y.o. female, established patient last seen by me on 03/04/2014. No significant changes in health. Here today for a full skin exam. Only skin concern is a spot under her lefteye that has been there for about 6 months. Denies pain, itching and bleeding. Did not fill previousprescription for tretinoin due to the masters. MEDS: Current Outpatient Prescriptions Medication Sig Dispense Refill ??? tretinoin (RETIN-A) 0.025 % Cream Apply pea-sized amount to face every night. 45 g 1 No current facility-administered medications for this visit. ADR: No Known Allergies FAMILY HISTORY: None ?? 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 A total body skin exam except for areas covered by underwear was performed. This includes examination of the skin of the face, ears, neck, chest, axillae, left and right upper and lower extremities, hands and feet, abdomen, and except the areas covered by underwear were not examined. Significant skin findings: A. Below left lower eyelid, torso and extremities: Scattered 0.4-0.6 cm pink- brown papules and macules with waxy stuck on appearance. ?? B. Left eyebrow x 1, right [facility] x 1: 0.2-0.3 cm scaly irregular pink papules. C. Sun-exposed areas: 0.3-0.6 cm light-brown evenly pigmented, well-demarcated macules. ?? D. Multiple, 0.3-0.5 cm, medium-brown, evenly-pigmented macules and papules. All with regular pigment pattern on dermoscopy. No pigmented lesions suspicious for melanoma. E. Right chest x 2: pink fleshy papules. F. Right upper chest: 0.5 cm hernandez-brown macule. [See Figure A.] Figure A Photo(s) taken??by Venecia Eric, Clinical Scribe, with patient's verbal permission for use for clinical and education purposes. ?? ASSESSMENT/PLAN: A. Seborrheic Keratosis - Patient reassured lesions are benign in nature. - Patient advised to call, should they become inflamed or irritated. B. Actinic Keratoses - Discussed with patient the natural history and etiology of actinic keratoses. Discussed premalignent potential of these lesions. Discussed treatment options including risks, benefits, and alternatives. - Decision was made together with patient to proceed with Cryotherapy (LN2), see procedure note below. ?? Procedure Note: Procedure: Destruction of lesion(s) with cryotherapy. Number: 2 Location(s) as above Discussed procedure and expectations including risks (especifically discussed with pt the risk of hypopigmentation) and benefits. Verbal consent obtained. Frozen with LN2, 15-30 second thaw time, TWICE. There were no complications; the patient tolerated the procedure well. Post-procedure expectations and wound care were reviewed. - Patient was instructed to observe skin closely for any changes, and call if such occurs C. ??Lentigines - Discussed benign nature of lesion and provided reassurance. No treatment necessary at this time. - The nature of sun-induced photo-aging and skin cancers is discussed. Sun avoidance, protective clothing, and the use of 30-SPF broad spectrum sunscreens is advised. Observe closely for skin damage/changes, and call if such occurs. ?? D. Benign appearing nevi, patient reassured - Patient instructed to return to clinic for re-evaluation of area if notes change, growth, bleeding, etc. - Advised to watch for anything new or changing. ? E. Dermal nevi - Discussed benign nature of lesion and provided reassurance. No treatment necessary at this time. ?? F. Lentigo Maligna vs Lentigo Procedure: Skin biopsy by shave technique Location: Right upper chest Discussed indications for procedure and expectations including risks and benefits. Verbal consent obtained. Skin prep with alcohol. Local anesthesia with 1% xylocaine. A sample of the lesion was removed by shave technique to the level of the dermis and submitted to Pathology. Hemostasis obtained (AlCland/or electrocautery). There were no complications; the pt. tolerated the procedure well. The woundwas dressed. Post-procedure expectations, wound care and activity restrictions were reviewed. Follow-up based on pathology results. Follow up: Return to clinic in 1 year for full skin exam, or sooner if needed. Reminder put in the system to schedule. Patient instructed to call with questions or concerns. Additional follow up based on pathology results, or if changes/symptoms in new or existing lesions develop. Patient elects to receive results at [phone]. A detailed message may be left at this number. I am documenting this encounter acting as the scribe for and in the presence of Dr. Magana: Key Gao, [facility] and Venecia Eric, Clinical Scribe I performed the above scribed service and agree with the accuracy of the documentation in this encounter. Carol Magana MD Customer Contact Sales Associate of Dermatology, Department of Business Unit ManagerCustomer Contact Sales Associateui designer (Dermatopathology) [facility] documented in this encounter Plan of Treatment Scheduled Procedures Name Priority Associated Diagnoses Date/Time COLONOSCOPY, DIAGNOSTIC screening same day documented as of this encounter Procedures Procedure Name Priority Date/Time Associated Diagnosis Comme nts SURGICAL PATHOLOGY Routine 11/21/2017 5:14 PM Res ults for this REPORT EST procedure are i n the results section. SPECIMEN TO Routine 11/21/2017 5:14 PM Neoplasm of Results f or this PATHOLOGY EST uncertain behavior procedure are in the results section. documented in this encounter Results Surgical Pathology Report (11/21/2017 5:14 PM EST) Component Value Ref Test Analysis Performed At [facility] Method Time Signature Surgical [id number] ? Location: [facility] Report The signing pathologist has (i) examined the relevant preparation(s) for the [facility]ORIAL specimen(s) and (ii) rendered or confirmed the diagnosis(es) . HOSPITAL LABORATORY . ?Surgic al Pathology DIAGNOSIS Skin, right upper chest, shave ?? biopsy: - SOLAR LENTIGO Electronically signed by: ??Morgan Londono MD Verified: ??11/24/2017 ?Dermatopathologist, Bone & Soft Tissue Pathologist Performed at: ??-[facility] Dept. of Pathology, [place], [place] CLINICAL INFORMATION Specimen Submitted: A - Skin, right upper chest, shave biopsy (1) Clinical History: 0.5 cm hernandez-brown macule Clinical Diagnosis: Lentigo maligna versus lentigo SPECIMEN PROCESSING A - Labeled/Fixative: Right upper chest, formalin. Quantity/Size: Single, 1.0 x 0.6 x 0.1 cm. Tissue Description: Shave of waterman-brown skin. Sections/Processing: The spe cimen is inked, sectioned and entirely submitted with the tips appearing in cassette (1) and the body in cassette (2) . (T2) ??ejr Specimen (Source) Anatomical Collection Method Collection Time Re ceived Time Location / / Volume Laterality 11/21/2017 5:14 PM EST Carol Magana MD PATHOLOGY/CYTOLOGY ORDERABLE S Performing Organization Address City/[facility]/[place] [address] Specimen to Pathology (11/21/2017 5:14 PM EST) Specimen Anatomical Collection Method Collection Time Receive d Time (Source) Location / / Volume Laterality AP Specimen 11/21/2017 5:14 PM 8 6:12 EST PM EST Narrative [facility] - 11/21/2017 6:12 PM EST Specimen requisition ordered. 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
--- OUTSIDE RECORDS SUMMARY | 2022-08-19 02:42 | XMS_ITS | Encounter Summary ---
:1950 Author Organization [facility] [place] [address] Care Team Providers Name Role Phone Edil Ramírez DO Primary Care Provider Reason for Referral Diagnostic Test (Routine) - Closed Specialty Diagnoses / Procedures Referred By Contact Refer red To Contact Radiology Diagnoses Syncope and collapse Edil Ramírez DO [facility] Rad Nuclear Med Procedures NM Exercise Stress Myocardial Perfusion [address] [place], [place] [address] [place] [address] Phone: Fax: Referral ID Status Reason Start Date Expiration Date Visits V isits Requested Authorized [id number] Closed Specialty 07/19/2019 07/18/2020 1 1 Service Requested Reason for Visit Diagnostic Test (Routine) - Closed Specialty Diagnoses / Procedures Referred By Contact Refer red To Contact Radiology Diagnoses Syncope and collapse Edil Ramírez DO [facility] Rad Nuclear Med Procedures NM Exercise Stress Myocardial Perfusion [address] [place] [address] [place] [address] Phone: Fax: Referral ID Status Reason Start Date Expiration Date Visits V isits Requested Authorized [id number] Closed Specialty 07/19/2019 07/18/2020 1 1 Service Requested Encounter Details Date Type Department Care Team Description 08/23/2019 Hospital Encounter Nuclear Medicine at [facility] as, Syncope and Megha Oliveira DO collapse [facility] [address] [place], [place] [address] [phone] Social History Tobacco Use Types Packs/Day Years [...] in this encounter Results NM Exercise Stress Myocardial Perfusion (08/29/2019 8:40 [...] report, please contact e number below. Edil LUBIN [place] ORDERABLES documented in this encounter Visit Diagnoses Diagnosis Syncope and collapse documented in this encounter Care Teams Early Head Start Teacher Relationship Specialty Start Date End Date Edil Ramírez DO PCP - General 10/30/[address] [place] [address] [address] [facility] [place] [address] documented as of this encounter
--- OUTSIDE RECORDS SUMMARY | 2022-08-19 02:42 | XMS_ITS | Encounter Summary ---
:1950 Author Organization [facility] [place] [address] Care Team Providers Name Role Phone DarrellEdil angel Primary Care Provider Reason for Visit Reason Comments Headache Encounter Details Date Type Department Care Team Description 07/10/2019 - Emergency Emergency Department Paco Valladares onintractable 07/11/2019 Megha Chu MD headache, unspecified [facility] chronicity pattern, [facility] [place] [address] type [place], [place] [phone] [id number] (Work) [phone] Social History Tobacco Use Types Packs/Day Years Used Date Never Smoker Smokeless Tobacco: Never Used Sex Assigned at Date Recorded Not on file documented as of this encounter Last Filed Vital Signs Vital Sign Reading Time Taken Comments Blood Pressure 134/72 07/11/2019 1:37 AM EDT Pulse 84 07/11/2019 1:37 AM EDT Temperature 36.8 ??C (98.2 ??F) 07/11/2019 1:37 AM EDT Respiratory Rate 16 07/11/2019 1:37 AM EDT Oxygen Saturation 97% 07/11/2019 1:37 AM EDT Inhaled Oxygen Concentration - - Weight - - Height - - Body Mass Index - - documented in this encounter Discharge Instructions AttachmentsThe following attachments cannot be sent through Care Everywhere. Headache (Dutch)documented in this encounter Medications at Time of Discharge [...] twice monthly documented as of this encounter ED Notes Carole Fofana RN - 07/11/2019 12:06 AM EDT Family/friend at bedside. Neurosurg to see pt. Pt updated. Jarred Arzate RN - 07/10/2019 10:44 PM EDT Transported to MRI Valdez Ricks MD - 07/10/2019 10:15 PM EDT ED RESIDENT HANDOFF NOTE: The patient was signed out to me by preceding ED team. Please see their notes for full details. I assumed the patient's care, reviewed the medical record, and discussed the patient's ED course with theprevious treatment team. Pertinent labs and studies have been reviewed. Brief HPI Shea Kraus is a 69 y.o. female in the process of being evaluated for headache for last 4 to 5 days she noted that she also had episode of near syncope, and noted to be tachycardic with home BP in the 210 systolic range. Neurosurgery was consulted, they requested an emergent MRI brain with and without contrast, that is been ordered as of 2203 hrs., they will see the patient after that. ?? ED Course (since sign-out to me) ED Course as of Jul 11 417MonJul 10, [id number] Metastasis creatinine, low bicarb, unlikely to be clinically significant Basic Metabolic Panel (non-fasting)(!) 2215 Troponin-T: <0.01 2215 Phosphorus: 3.2 2215 Magnesium: 0.85 2215 Low RBC, elevated MCV CBC (with Diff)(!) MRI Brain wwo Contrast (Generic) Final Result Small left parafalcine probable meningioma; however, correlate with history and consider follow-up as other potential dural based lesion can have a similar appearance. Preliminary report signed by: Tigist Handley at 07/11/2019 1:31 AM I have personally reviewed the image(s) and the residents interpretation and agree with the findings, Sanjeev Eller at 07/11/2019 3:07 AM Thank you for letting us participate in the care of this patient. For questions regarding this report, please contact the number below. Head wo Contrast (Generic) Final Result Abnormal * No acute intracranial hemorrhage or mass effect identified. * Small 6 mm LEFT parafalcine lesion, suspicious for meningioma; however, dural based metastasis can have a similar appearance and this should be correlated with any history of or concern for malignancy. Consider nonemergent MRI for further evaluation barring contraindication (unexpected finding). Thank you for letting us participate in the care of this patient. For questions regarding this report, please contact the number below. Assessment/Plan MRI results as above, most likely represents a meningioma, the punctate areas of signal enhancement on the MRI most likely represent normal age-related changes, not consistent with metastatic disease or malignancy. Discussion with her neurosurgeon colleagues, will discharge patient home in self-care. Return precautions were discussed the patient understands she can return to the emergency departmentanytime. Valdez Ricks MD Emergency Medicine PGY2 4:17 AM 07/11/19 Pager # [phone] Valdez Ricks MD Resident 07/11/19 [id number] Jarred Arzate RN - 07/10/2019 10:06 PM EDT MD at bedside to discuss CT Jarred Arzate RN - 07/10/2019 9:20 PM EDT Awake, alert, oriented. Resting comfortably with at bedside. 2/10 headache at this time. Call sanderson within reach, continuing to monitor. Laverne Tee RN - 07/10/2019 8:11 PM EDT at bedside Jaren Paulson DO - 07/10/2019 8:04 PM EDT ED Resident Note Seha Kraus is an 69 y.o. female who presents to the ED with: Chief Complaint Patient presents with ??? Headache HPI Shea Kraus is a 69 y.o. female with history of HTN who presents to the Emergency Department with headache. Patient reports 4-5 days of headache, rated 2/10, located in the R temporal area, no radiation, intermittent, dull ache. Denies nausea, vomiting, photophobia, phonophobia, or visual changes. Never had headache before. Also reports an episode of chills in her legs, feeling woozy, with fast heart beat while getting off the bus today. Blood pressure measured at home in 200's which, together with the episode of feeling woozy, brought her to the ED today. Currently continues to feel woozy with somemild headache, but other symptoms of chills in feet and palpitations have resolved. Otherwise deniesfever, chills, chest pain, shortness of breath. PMH: No past medical history on file. Review of Systems: Review of Systems Review of Systems Constitutional: denies fever or chills HEENT: denies visual changes, runny eyes, runny nose, sore throat Respiratory: denies cough, wheeze, shortness of breath. Cardiovascular: denies chest pain, palpitations Gastrointestinal: denies heartburn, abdominal pain, diarrhea, N/V Genitourinary: denies dysuria, urgency, frequency, hematuria Skin: denies rash. Muskuloskeletal: denies arthralgia, myalgia. Neurological:+ headaches, + dizziness, denies photophobia, phonophobia, Physical Exam: Temp: [37.8 ??C (100 ??F)] Heart Rate: [81-95] Resp: [13-15] BP: (138-159)/(72-88) SpO2: [98 %-99 %] Heart Rate from SpO2: [80 bpm-95 bpm] General: AAOx4, in NAD HEENT: normocephalic/atraumatic, EOMI, PERRL, MMM. Neck: supple, full range of motion Cardiovascular: normal rate, regular rhythm, S1/2, no murmurs. no LE edema Pulmonary: LCTAB Abdomen: soft, nondistended, no TTP, no rebound/guarding Skin: no rashes MSK: no deformities. Neuro: CN II-XII grossly intact bilaterally. Strength: 5/5 upper and lower extremities bilaterally. Sensation to light touch: intact/equal upper and lower extremities bilaterally. Psych: normal mood and thought pattern. ED Course: - Patient seen under the supervision of the attending physician. - Medications, allergies, and past medical history reviewed. Recent Results (from the past 24 hour(s)) Basic Metabolic Panel (non-fasting) Result Value Ref Range Glucose Lvl 90 65 - 199 mg/dL BUN 18 8 - 18 mg/dL Creatinine 0.63 (L) 0.70 - 1.20 mg/dL Sodium 140 135 - 145 mmol/L Potassium 3.7 3.5 - 5.0 mmol/L Chloride 104 98 - 107 mmol/L CO2 21 (L) 22 - 31 mmol/L Anion Gap 15 5 - 15 mmol/L Calcium 9.4 8.5 - 10.5 mg/dL eGFR 92 >=60 mL/min/1.73 m?? eGFR 106 >=60 mL/min/1.73 m?? Magnesium Result Value Ref Range Magnesium 0.85 0.69 - 1.07 mmol/L Phosphorus Result Value Ref Range Phosphorus 3.2 2.5 - 4.5 mg/dL Hemogram Result Value Ref Range WBC 7.4 4.0 - 9.5 x10(3)/mcL RBC 3.84 (L) 4.00 - 5.21 x10(6)/mcL Hemoglobin 11.7 11.7 - 15.5 gm/dL Hematocrit 36.6 35.7 - 45.8 % MCV 95.3 (H) 82.6 - 94.4 fL MCH 30.5 27.1 - 32.0 pg MCHC 32.0 31.7 - 35.0 gm/dL Platelets 271 145 - 357 x10(3)/mcL RDWSD 41.8 37.0 - 46.0 fL RDWCV 12.1 11.5 - 14.1 % MPV 10.6 7.6 - 12.9 fL nRBC % Auto 0.0 % nRBC Abs Auto 0.000 0.000 - 0.000 x10(3)/mcL Differential, Automated Result Value Ref Range Neutrophils % 65.1 % Neutr Abs (ANC) 4.85 1.70 - 6.10 x10(3)/mcL Lymphocytes % 25.1 % Lymphocytes Abs 1.9 0.9 - 3.2 x10(3)/mcL Monocytes % 8.1 % Monocyte Abs 0.6 0.3 - 0.9 x10(3)/mcL Eosinophils % 0.9 % Eosinophils Abs 0.1 0.0 - 0.4 x10(3)/mcL Basophils % 0.5 % Basophils Abs 0.0 0.0 - 0.1 x10(3)/mcL Immature Gran % 0.30 % Jo Gran Abs 0.02 0.00 - 0.04 x10(3)/mcL Blue Tube HOLD Result Value Ref Range Blue Hold Sample in lab. Gold Tube HOLD Result Value Ref Range Gold Hold Sample in lab. Troponin Result Value Ref Range Troponin-T <0.01 0.00 - 0.00 ng/mL Imaging: - CTH: * No acute intracranial hemorrhage or mass effect identified. * Small 6 mm LEFT parafalcine lesion, suspicious for meningioma; however, dural based metastasis can have a similar appearance and this should be correlated with any history of or concern for malignancy. Consider nonemergent MRI for further evaluation barring contraindication (unexpected finding). - MRI brain wwo: pending Consults: - Neurosurgery Medications given: Medications gadoterate meglumine (DOTAREM) 0.5 mmol/mL (376.9 mg/mL) injection 0-100 mL (10 mLs Intravenous Given 07/10/19 2300) Assessment and Plan: 69 y.o. female with history of HTN who presents to the Emergency Department with headache. Patient's headache with nonfocal neurologic exam and no systemic signs is initially suggestive of tension-type headache. Her blood pressure is quite labile, with SBP 200 at home, 180 on initial presentation, and trending down to 150 then 120, without any intervention. Her complaints of chills in feet, tachycardia, and dizziness, though non-specific, are concurrent with her labile blood pressure whichis most likely the cause. Workup, including CBC, CMP, troponin, and ECG, are largely unremarkable. However, CTH reveals a L parafalcine lesion, suggestive of meningioma, but cannot rule out metastasis. Neurosurgery was consulted and recommended stat MRI brain with and without contrast. Patient will be evaluated by neurosurgeryafter MRI. Care of this patient was signed off to oncoming ED physician. - Follow up MRI brain wwo result - Follow up neurosurgery recommendations Jaren Paulson DO Resident 07/11/19 0004 Associated attestation - Paco Valladares MD - 07/11/2019 5:59 PM EDT ED ATTENDING ATTESTATION The patient was seen in conjunction with the resident physician. I have independently performed the hurley portions of the history and physical exam. I have personally reviewed nursing notes, vital signs,and diagnostic studies including labs, imaging studies and EKGs. I have discussed the details of the case with the resident and agree with the assessment and plan as described in the resident's note, unless stated otherwise in my separate note. Patient was signed out to oncoming ED attending pending MRI and final neurosurgical consultation. documented in this encounter Miscellaneous Notes Consult Note - Tania Wan APRN - 07/11/2019 12:40 AM EDT Neurosurgery Inpatient Consultation Note Date & Time of Consult: 07/11/2019 12:40 AM Referring Service: Emergency Medicine Referring Attending: Dr. Tee Neurosurgery Attending: Dr. Jimenez Place of Consult: ED13 ID: Name: Shea Kraus, 69 y.o. female Admission Date: 07/10/2019 CC: Headache HPI: This is a 69 y.o. female with PMH of HTN who presents to the ED with a posterior headache that started approximately 4 days ago. She thought that perhaps her blood pressure was high because her headache didn't seem normal, so she went home and took her blood pressure and had a systolic BP of 190. She states she felt like something was wrong so she came to the ED for evaluation. She is complaining of a mild headache at the top of her head. Denies nausea, vomiting, numbness, weakness, paresthesias, LOC, difficulties with balance, visual orauditory symptoms. Denies bowel or bladder symptoms. No history of anticoagulation or antiplatelets. Last colonoscopy 10 years ago. PMH: HTN No past surgical history on file. Medications: No current facility-administered medications on file prior to encounter. Current Outpatient Medications on File Prior to Encounter Medication Sig Dispense Refill ??? losartan (COZAAR) 25 mg Tablet Take 25 mg by mouth 2 times daily. ??? amLODIPine (NORVASC) 5 mg Tablet Take 5 mg by mouth daily. Indications: Unsure of actual dosage ??? tretinoin (RETIN-A) 0.025 % Cream Apply pea-sized amount to face every night. (Patient not taking: Reported on 11/21/2017) 45 g 1 Scheduled Meds: Continuous Infusions: PRN Meds:. Allergies: No Known Allergies Family Hx: Mother at age 60 from stroke Father at age 55 from liver cancer 3 sisters, olders, all healthy Social Hx: Social History Socioeconomic History ??? Marital status: Spouse name: Not on file ??? Number of children: Not on file ??? Years of education: Not on file ??? Highest education level: Not on file Occupational History ??? Not on file Social Needs ??? Financial resource strain: Not on file ??? Food insecurity: Worry: Not on file Inability: Not on file ??? Transportation needs: Medical: Not on file Non-medical: Not on file Tobacco Use ??? Smoking status: Never Smoker ??? Smokeless tobacco: Never Used Substance and Sexual Activity ??? Alcohol use: Not on file ??? Drug use: Not on file ??? Sexual activity: Not on file Lifestyle ??? Physical activity: Days per week: Not on file Minutes per session: Not on file ??? Stress: Not on file Relationships ??? Social connections: Talks on phone: Not on file Gets together: Not on file Attends sikhism service: Not on file Active member of club or organization: Not on file Attends meetings of clubs or organizations: Not on file Relationship status: Not on file ??? Intimate partner violence: Fear of current or ex partner: Not on file Emotionally abused: Not on file Physically abused: Not on file Forced sexual activity: Not on file Other Topics Concern ??? Not on file Social History Narrative ??? 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 -HEENT: ATNC. -CV: Regular to peripheral palpation -Resp: Even, unlabored -Neuro: Mental Status/Cognitive: Awake, alert, oriented x3 GCS: 15 Speech: Fluent, appropriate. Naming and repetition intact. Cranial Nerves: PERRL 3mm reactive bilaterally CN II - Visual acuity and hernandez grossly intact CN III, IV, - EOMI CN V - Sensation intact in V1,2 and 3 distributions CN VII - No facial asymmetry/droop CN VIII - Intact hearing bilaterally to finger rub CN IX, X - Palate and uvula midline CN XI - Trapezius 5/5 bilat CN XII - Tongue midline Tone: Normal Power: No pronator drift Segment Muscle Action Left Right C5 Deltoid Shoulder Abduction 5 5 C6 Biceps Elbow flexion 5 5 C6 Extensor carpi radialis Wrist extension 5 5 C7 Triceps Elbow extension 5 5 C8 Finger flexors Grasp 5 5 T1 Interossei Finger abduction 5 5 L2 Iliopsoas Hip flexion 5 5 L3 Quadriceps Knee extension 5 5 L4 Tibialis anterior Dorsiflexion 5 5 L5 Extensor hallucis Great toe extension 5 5 S1 Gastrocnemius Plantar flexion 5 5 Reflexes: Reflex Left Right Biceps 2+ 2+ Triceps 2+ 2+ BR 2+ 2+ Patellar 2+ 2+ Ankle jerk 1+ 1+ Plantar response Downgoing Downgoing Gait: Not assessed Sensation in the extremities: Light touch: Intact x 4 Labs: Recent Labs 07/10/192054 WBC 7.4 HGB 11.7 PLATELET 271 Recent Labs 07/10/192054 NA 140 K 3.7 CL 104 CO2 21* BUN 18 CREATININE 0.63* No results for input(s): PT, INR in the last 72 hours. Imaging: CT Head wo Contrast 07/10/19: COMPARISON: ?? FINDINGS: Anderson-white interface appears relatively well differentiated on a background of patchy bihemispheric white matter hypodensity, which is nonspecific but may be sequela of chronic microangiopathy although other etiologies are not excluded. No acute intracranial hemorrhage identified. No significant mass effect appreciated. Small 6 mm LEFT parafalcine hyperdensity. Clear included paranasal sinuses. Clear included mastoid air cells. Calvarium appears intact. ?? IMPRESSION * No acute intracranial hemorrhage or mass effect identified. * Small 6 mm LEFT parafalcine lesion, suspicious for meningioma; however, dural based metastasis can have a similar appearance and this should be correlated with any history of or concern for malignancy. Consider nonemergent MRI for further evaluation barring contraindication (unexpected finding). MRI Brain wwo Contrast 07/10/19: COMPARISON: CT head 07/10/2019. ?? FINDINGS: Small 6 mm LEFT parafalcine dural based enhancing lesion which demonstrates slow diffusion and internal flow void without significant mass effect or underlying edema. No acute infarct identified. Scattered focal bihemispheric white matter T2/FLAIR hyperintensities are nonspecific but may be sequela of chronic microangiopathy although other etiologies are not excluded. No acute intracranial hemorrhage identified. No evidence of global mass effect. Central flow voids of the principal intracranial arteries and major dural venous sinuses appear maintained, with commensurate enhancement on the postcontrast images. ?? IMPRESSION Small left parafalcine probable meningioma; however, correlate with history and consider follow-up as other potential dural based lesion can have a similar Appearance. Assessment: This is a 69 y.o. female PMH of HTN who presented to ED with 4 day history of headaches. Yesterday afternoon she was feeling shaky and not well, went home and took her blood pressure with a systolic reading of 190 and called EMS to bring her to ED. She is neurologically intact. CT/MRI likely LEFT parafalcine meningioma. She has no cancer history nor concerning symptoms and is up to date with her mammograms and colonoscopy. She has never smoked. Suspicion for this potentially being a metastatic lesion is very low. Plan: Patient can follow up with Dr. Jimenez in the Neurosurgery Clinic in 1-2 weeks. I have reviewed the above with Dr. Rubi, who agrees with the assessment and plan. documented in this encounter Plan of Treatment Scheduled Procedures Name Priority Associated Diagnoses Date/Time COLONOSCOPY, DIAGNOSTIC screening same day documented as of this encounter Procedures Procedure Name Priority Date/Time Associated Diagnosis Comme nts MRI BRAIN WWO STAT 07/10/2019 11:16 PM Results for this CONTRAST (GENERIC) EDT procedure are in the results section. CT HEAD WO CONTRAST STAT 07/10/2019 9:09 PM Re sults for this (GENERIC) EDT procedure are i n the results section. EKG 12-LEAD STAT 07/10/2019 8:55 PM Results f or this EDT procedure are i n the results section. HEMOGRAM STAT 07/10/2019 8:55 PM Results f or this EDT procedure are i n the results section. DIFFERENTIAL, STAT 07/10/2019 8:55 PM Results for this AUTOMATED EDT procedure are i n the results section. GOLD TUBE HOLD STAT 07/10/2019 8:55 PM Results for this EDT procedure are i n the results section. BLUE TUBE HOLD STAT 07/10/2019 8:55 PM Results for this EDT procedure are i n the results section. HC CBC,PLT & AUTO STAT 07/10/2019 8:55 PM DIFF EDT TROPONIN STAT 07/10/2019 8:55 PM Results f or this EDT procedure are i n the results section. HC PHOSPHORUS, STAT 07/10/2019 8:55 PM Results for this SERUM EDT procedure are i n the results section. HC MAGNESIUM, SERUM STAT 07/10/2019 8:55 PM Re sults for this EDT procedure are i n the results section. BASIC METABOLIC STAT 07/10/2019 8:55 PM Result s for this PANEL (NON-FASTING) EDT procedur e are in the results section. documented in this encounter Results MRI Brain wwo Contrast (Generic) (07/10/2019 11:16 PM EDT) Anatomical Region Laterality Modality Head Magnetic Resonance Specimen (Source) Anatomical Location Collection Method / Collectio n Time Received Time / Laterality Volume Impressions 07/11/2019 3:07 AM EDT Small left parafalcine probable meningioma; however, correlate with history and consider follow-up as other potential du ral based lesion can have a similar appearance. Preliminary report signed by: Tigist Handley at 07/11/2019 1:31 AM I have personally reviewed the image(s) and the residents interpretation and agree with the findings, Sanjeev Eller at 07/11/2019 3:07 AM Thank you for letting us participate in the care of this patient. For questions regarding this report, please contact e number below. ? Narrative 07/11/2019 3:07 AM EDT EXAMINATION: MRI BRAIN WWO CONTRAST (GENERIC) CLINICAL HISTORY: L parafalcine lesion o n CTH TECHNIQUE: MRI of the brain was performed before an d after the intravenous administration of 10cc Dotarem. COMPARISON: CT head 07/10/2019. FINDINGS: Small 6 mm LEFT parafalcine dural based enhancing lesion which demonstrates slow diffusion and internal flow void without significant mass effect or underlying edema. No acute infarct identified. Scat tered focal bihemispheric white matter T2/FLAIR hyperintensities are nonspecifi c but may be sequela of chronic microangiopathy although other etiologie s are not excluded. No acute intracranial hemorrhage identified. No e vidence of global mass effect. Central flow voids of the principal intracranial arteries and major dural venous sinuses appear maintained, with commensurate enh ancement on the postcontrast images. Procedure Note Sanjeev Eller MD - 07/11/2019 EXAMINATION: MRI BRAIN WWO CONTRAST (GEN JAVIER) CLINICAL HISTORY: L parafalcine lesion o n CTH TECHNIQUE: MRI of the brain was performed before an d after the intravenous administration of 10cc Dotarem. COMPARISON: CT head 07/10/2019. FINDINGS: Small 6 mm LEFT parafalcine dural based enhancing lesion which demonstrates slow diffusion and internal flow void without significant mass effect or underlying edema. No acute infarct identified. Scat tered focal bihemispheric white matter T2/FLAIR hyperintensities are nonspecifi c but may be sequela of chronic microangiopathy although other etiologie s are not excluded. No acute intracranial hemorrhage identified. No e vidence of global mass effect. Central flow voids of the principal intracranial arteries and major dural venous sinuses appear maintained, with commensurate enh ancement on the postcontrast images. IMPRESSION Small left parafalcine probable meningio ma; however, correlate with history and consider follow-up as other potential du ral based lesion can have a similar appearance. Preliminary report signed by: Tigist Handley at 07/11/2019 1:31 AM I have personally reviewed the image(s) and the residents interpretation and agree with the findings, Sanjeev Eller at 07/11/2019 3:07 AM Thank you for letting us participate in the care of this patient. For questions regarding this report, please contact e number below. Paco Valladares MD IMG MRI ORDERABLES (ABNORMAL) CT Head wo Contrast (Generic) (07/10/2019 9:09 PM EDT) Anatomical Region Laterality Modality Head Computed Tomography Specimen (Source) Anatomical Location Collection Method / Collectio n Time Received Time / Laterality Volume Impressions 07/10/2019 9:32 PM EDT * ??No acute intracranial hemorrhage or mass effect identified. * ??Small 6 mm LEFT parafalcine lesion, suspicious for meningioma; however, dural based metastasis can have a similar appe arance and this should be correlated with any history of or concern for gerson urbina. Consider nonemergent MRI for further evaluation barring contraindicat ion (unexpected finding). Thank you for letting us participate in the care of this patient. For questions regarding this report, please contact e number below. ? Narrative 07/10/2019 9:32 PM EDT EXAMINATION: CT HEAD WO CONTRAST (GENERIC) CLINICAL HISTORY: headache - SBP in 190s -200s - possible hemorrhage TECHNIQUE: CT head performed without intravenous co ntrast administration. COMPARISON: FINDINGS: Anderson-white interface appears relatively well differentiated on a background of patchy bihemispheric white matter hypode nsity, which is nonspecific but may be sequela of chronic microangiopathy altho ugh other etiologies are not excluded. No acute intracranial hemorrhage identif ied. No significant mass effect appreciated. Small 6 mm LEFT parafalcine hyperdensity . Clear included paranasal sinuses. Clear included mastoid air cells. Calvarium appears intact. Resulting Agency Comment Unexpected Finding Paco Valladares MD IMG CT ORDERABLES EKG 12 Lead (07/10/2019 8:55 PM EDT) Component Value Ref Range Test Analysis Performed Pathologis t Method Time At Signature Ventricular rate 90 BPM MUSE SYSTEM Atrial Rate 90 BPM MUSE SYSTEM P-R Interval 152 ms MUSE SYSTEM QRS Duration 88 ms MUSE SYSTEM Q-T Interval 364 ms MUSE SYSTEM QTC Calculated 445 ms MUSE SYSTEM (Bezet) Calculated P Dalton 58 degrees MUSE SYSTEM Calculated R Dalton 73 degrees MUSE SYSTEM Calculated T Dalton 52 degrees MUSE SYSTEM INTERPRETATION Normal sinus rhythm with sinus arrhythmia MUSE SYSTEM Possible Left atrial enlargement Nonspecific ST abnormality Borderline ECG No previous ECGs available Confirmed by MD DICKEY ALAN ([id number]) on 07/11/2019 7:11:03 AM Specimen Anatomical Collection Method Collection Time Receive d Time (Source) Location / / Volume Laterality 07/10/2019 8:55 PM 9 7:11 EDT AM EDT Paco Valladares MD ECG ORDERABLES Performing Organization Address City/State/ZIP Code Phon e Number MUSE SYSTEM Troponin (07/10/2019 8:55 PM EDT) P athologist Signature Troponin-T <0.01 0.00 - 0.00 [facility] ng/mL [facility] Comment: The 99th percentile for Troponin T is le ss than 0.01 ng/mL, any detectable cTnT concentration using this assay should be considered elevated. According to the third universal definit ion of myocardial infarction the following criteria with a clinical prese ntation consistent with acute myocardial ischemia meets the diagnosis for a myocardial infarction ([place]). Detection of a rise and/or fall of cTnT, with at least one value greater than the 99th percentile (> or = 0.01) and wi th at least one of the following ?? Symptoms of ischemia ?? New or presumed new significant ST-se gment-T wave (ST-T) changes or new left bundle branch block (LBBB) ?? Development of pathologic Q waves in the ECG ?? Imaging evidence of new loss of viabl e myocardium or new regional wall motion abnormality ?? Identification of an intracoronary th rombus by angiography or autopsy Samples for cTnT testing should be obtai ana serially upon first assessment and again 3 to 6 hours later. If the clinica l suspicion is high and previous samples have been negative an additional sample may be indicated. Reference: Third [place] Definition of Myocardial Infarction. Journal of the [place] [employer] 2012;60:1581-98 Specimen Anatomical Collection Method Collection Time Receive d Time (Source) Location / / Volume Laterality Blood specimen Venous Draw / 07/10/2019 8:55 PM 2018 9:03 (specimen) Unknown EDT PM EDT Resulting Agency Comment Spec In Lab Angelito Nelson MD CHEMISTRY ORDERABLES Performing Organization Address City/[facility]/ZIP [facility] [place] [place] [address] Gold Tube HOLD (07/10/2019 8:55 PM EDT) athologist Signature Gold Hold Sample in [facility] LABORATORY Specimen Anatomical Collection Method Collection Time Receive d Time (Source) Location / / Volume Laterality Blood specimen Venous Draw / 07/10/2019 8:55 PM 2018 8:59 (specimen) Unknown EDT PM EDT Angelito Nelson MD CHEMISTRY ORDERABLES Performing Organization Address City/[facility]/ZIP Code Phon e Number [address] Blue Tube HOLD (07/10/2019 8:55 PM EDT) athologist Signature Blue Hold Sample in [facility] Specimen Anatomical Collection Method Collection Time Receive d Time (Source) Location / / Volume Laterality Blood specimen Venous Draw / 07/10/2019 8:55 PM 2018 9:00 (specimen) Unknown EDT PM EDT Angelito Nelson MD HEMATOLOGY ORDERABLES Performing Organization Address City/[facility]/ZIP Code Phon e Number [address] Differential, Automated (07/10/2019 8:55 PM EDT) athologist Signature Neutrophils % 65.1 % [facility] Neutr Abs (ANC) 4.85 1.70 - [facility] 6.10 [facility] x10(3)/[facility] LABORATORY Lymphocytes % 25.1 % [facility] Lymphocytes Abs 1.9 0.9 - 3.2 [facility] x10(3)/[facility] LABORATORY Monocytes % 8.1 % [facility] Monocyte Abs 0.6 0.3 - 0.9 [facility] x10(3)/[facility] LABORATORY Eosinophils % 0.9 % [facility] Eosinophils Abs 0.1 0.0 - [address].4 [facility] x10(3)/[facility] LABORATORY Basophils % 0.5 % [facility] Basophils Abs 0.0 0.0 - [address].1 [facility] x10(3)/[facility] LABORATORY Immature Gran % 0.30 % [facility] Comment: Immature granulocytes(IG's)percentage an d absolute count will include metamyelocytes, myelocytes, and promyelo cytes. Blood smears from CBCs yielding IG's will be scanned manually for concor dance. If this scan disagrees with the automated IG or if promyelocytes are not ed, a manual differential will be performed. Jo Gran Abs 0.02 0.00 - 0.04 x10(3)/[facility] MAR Y [facility] Specimen Anatomical Collection Method Collection Time Receive d Time (Source) Location / / Volume Laterality Blood specimen 07/10/2019 8:55 PM 019 8:59 (specimen) EDT PM EDT Resulting Agency Comment Spec In Lab Angelito Nelson MD HEMATOLOGY ORDERABLES Performing Organization Address City/State/[place] [address] (ABNORMAL) Hemogram (07/10/2019 8:55 PM EDT) Analysis Performed At Patho logist Time Signature WBC 7.4 4.0 - 9.5 [facility] x10(3)/[facility] LABORATORY RBC 3.84 (L) 4.00 - [facility] DEA 5.21 [facility] x10(6)/[facility] Hemoglobin 11.7 11.7 - [facility] 15.[facility] gm/dL [facility] Hematocrit 36.6 35.7 - [facility] 45.8 % [facility] MCV 95.3 (H) 82.6 - [facility] 94.4 [facility] LABORATORY MCH 30.5 27.1 - [facility] DEA 32.0 pg [facility] MCHC 32.0 31.7 - [facility] 35.[facility] gm/dL [facility] Platelets 271 145 - 357 [facility] x10(3)/[facility] LABORATORY RDWSD 41.8 37.0 - [facility] DEA 46.0 [facility] LABORATORY RDWCV 12.1 11.5 - [facility] DEA 14.1 % [facility] MPV 10.6 7.6 - 12.9 [facility] LABORATORY nRBC % Auto 0.0 % [facility] nRBC Abs Auto 0.000 0.000 - [facility] 0.000 [facility] x10(3)/[facility] LABORATORY Specimen Anatomical Collection Method Collection Time Receive d Time (Source) Location / / Volume Laterality Blood specimen 07/10/2019 8:55 PM 019 8:59 (specimen) EDT PM EDT Resulting Agency Comment Spec In Lab Angelito Nelson MD HEMATOLOGY ORDERABLES Performing Organization Address City/State/ZIP Code Phon e Number [address] Phosphorus (07/10/2019 8:55 PM EDT) P athologist Signature Phosphorus 3.2 2.5 - 4.5 [facility] mg/dL [facility] Specimen Anatomical Collection Method Collection Time Receive d Time (Source) Location / / Volume Laterality Blood specimen 07/10/2019 8:55 PM 019 8:59 (specimen) EDT PM EDT Resulting Agency Comment Spec In Lab Paco Valladares MD CHEMISTRY ORDERABLES Performing Organization Address City/State/ZIP Code Phon e Number [address] Magnesium (07/10/2019 8:55 PM EDT) P athologist Signature Magnesium 0.85 0.69 - 1.07 [facility] mmol/L [facility] Specimen Anatomical Collection Method Collection Time Receive d Time (Source) Location / / Volume Laterality Blood specimen 07/10/2019 8:55 PM 019 8:59 (specimen) EDT PM EDT Resulting Agency Comment Spec In Lab Paco Valladares MD CHEMISTRY ORDERABLES Performing Organization Address City/[facility]/ZIP Code Phon e Number [address] (ABNORMAL) Basic Metabolic Panel (non-fasting) (07/10/2019 8:55 PM EDT) P athologist Signature Glucose Lvl 90 65 - 199 [facility] Comment: Diabetes: >=200 mg/dL plus symp toms BUN 18 8 - 18 mg/dL [facility] Creatinine 0.63 (L) 0.70 - 1.20 mg/dL [facility] Sodium 140 135 - 145 mmol/L [facility] Potassium 3.7 3.5 - 5.0 mmol/L [facility] Comment: Please note: ??Patients with WBC >100,00 0 may have falsely elevated Potassium levels. ??For accurate Potassium quantif ication in these patients send serum separator tube (gold top) for subsequent determinations. ??Contact the Clinical Chemistry Laboratory if there are any qu estions. Chloride 104 98 - 107 mmol/L [facility] CO2 21 (L) 22 - 31 mmol/L [facility] Anion Gap 15 5 - 15 mmol/L [facility] Calcium 9.4 8.5 - 10.5 mg/dL [facility] Estimated GFR 92 >=60 mL/min/1.73 m?? [facility] Comment: The eGFR was calculated using the CKD-EP I equation. As with all creatinine based estimates of kidney function, eGFR values calculated with the CKD-EPI equation are not accurate in patients wi th acute kidney failure, extremes of body mass or the acutely ill. [email or web address]/[facility] CITYnkf eGFR 106 >=60 mL/min/1.73 m?? [facility] Comment: The eGFR was calculated using the CKD-EP I equation. As with all creatinine based estimates of kidney function, eGFR values calculated with the CKD-EPI equation are not accurate in patients wi th acute kidney failure, extremes of body mass or the acutely ill. http://Voxa/DHnkf Specimen Anatomical Collection Method Collection Time Receive d Time (Source) Location / / Volume Laterality Blood specimen 07/10/2019 8:55 PM 019 8:59 (specimen) EDT PM EDT Resulting Agency Comment Spec In Lab Paco Valladares MD CHEMISTRY ORDERABLES Performing Organization Address City/State/ZIP [place] [address] documented in this encounter Visit Diagnoses Diagnosis Nonintractable headache, unspecified chr onicity pattern, unspecified headache type documented in this encounter Administered Medications Inactive Administered Medications - up to 3 most recent administrations Medication Order MAR Action Action Date Dose Rate Site gadoterate meglumine (DOTAREM) Given 07/10/2019 11:00 PM EDT 10 mLs 0.5 mmol/mL (376.9 mg/mL) injection 0-100 mL 0-100 mL, Intravenous, ONCE PRN, 1 dose, Starting on Mon07/10/19 at 2301, Until Mon07/10/19 at 2300, Per Protocol, Radiology Contrast, Routine documented in this encounter Active and Recently Administered Medications Times are shown in EDT. PRN Medication Order 07/09/2019 07/10/2019 07/11/2019 gadoterate meglumine (DOTAREM) 0.5 mmol/ mL (376.9 mg/mL) injection 0-100 mL (COMPLETED) 2300 (Given - Provider: Randy Medina) 0-100 mL, Intravenous, ONCE PRN, 1 dose, Starting Mon07/10/19 at 2301, Until Mon07/10/19 at 2300, Per Protocol, Radiology Contrast, Routine documented in this encounter Care Teams Rolfer Relationship Specialty Start Date End Date Edil Ramírez DO PCP - General 10/30/[address] [place] [address] documented as of this encounter
--- OUTSIDE RECORDS SUMMARY | 2022-08-19 02:42 | XMS_ITS | Encounter Summary ---
:1950 Author Organization [facility] [place] [address] Care Team Providers Name Role Phone DarrellEdil larose Primary Care Provider Encounter Details Date Type Department Care Team Description 07/17/2019 Telephone Neurosurgery at [facility] [place] [address] Social History Tobacco Use Types Packs/Day [...] Notes Telephone Encounter - Jessa Vizcarra - 10/25/2019 10:38 AM EST Spoke with patient and scheduled f/u. Appt card declined. 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, MRI prior Telephone Encounter - Jessa Vizcarra - 07/17/2019 5:07 PM EDT ----- Message from Matthew Jimenez MD sent at 07/17/2019 10:38 AM EDT ----- rtc 1 yr with MRI brain +/- documented in this encounter Plan of Treatment Scheduled Procedures Name Priority Associated Diagnoses Date/Time COLONOSCOPY, DIAGNOSTIC screening same day documented as of this encounter Visit Diagnoses Not on filedocumented in this encounter Care Teams Beauty Specialist Relationship Specialty Start Date End Date Edil Ramírez DO PCP - General 10/30/[address] [place] [address] documented as of this encounter
--- OUTSIDE RECORDS SUMMARY | 2022-08-19 02:42 | XMS_ITS | Encounter Summary ---
:1950 Author Organization [facility] [place] [address] Care Team Providers Name Role Phone Edil Ramírez DO Primary Care Provider Encounter Details Date Type Department Care Team Description 08/29/2019 Hospital Encounter Non-Invasive Little Ramírez DO Cardiology Lab [facility] [address] [place] [id number] [place] [address] [place] [address] Social History Tobacco Use Types Packs/Day [...] on filedocumented in this encounter Care Teams Electrical Installation Supervisor Relationship Specialty Start Date End Date Edil Ramírez DO PCP - General 10/30/[address] [facility] [address] [place] [address] documented as of this encounter
--- OUTSIDE RECORDS SUMMARY | 2022-08-19 02:42 | XMS_ITS | Encounter Summary ---
:1950 Author Organization [place] [place] [address] Care Team Providers Name Role Phone Edil Ramírez DO Primary Care Provider Reason for Visit Reason Onset Date Comments TeleHealth 07/15/2021 Encounter Details Date Type Department Care Team Description 07/15/2021 Telephone Neurosurgery at [facility] Lavinia Giron, TeleHealth [facility] [place] [address] [facility] [phone] NEUROSURGERY [place] [address] (Wo rk) Social History Tobacco Use Types [...] this encounter Miscellaneous Notes Telephone Encounter - Kathy Bland RN - 07/15/2021 2:57 PM EDT Spoke to this patient??by phone to review??their??medications and allergies prior to their??upcomingtele-appointment with the Neurosurgery??provider. ??Medications and allergies reviewed, verified andupdated as needed. documented in this encounter Plan of Treatment Scheduled Procedures Name Priority Associated Diagnoses Date/Time COLONOSCOPY, DIAGNOSTIC screening same day documented as of this encounter Visit Diagnoses Not on filedocumented in this encounter Care Teams Steamer Gum Candy Relationship Specialty Start Date End Date Edil Ramírez DO PCP - General 10/30/[address] [facility] [address] [place] [address] documented as of this encounter
--- OUTSIDE RECORDS SUMMARY | 2022-08-19 02:43 | XMS_ITS | Encounter Summary ---
:1950 Author Organization [facility] Address [address] [place] [address] Care Team Providers Name Role Phone Unavailable Primary Care Provider Unavailable Encounter Details Date Type Department Care Team Description 09/27/2011 Results Only [facility] Emiliano Tapia , Laboratory Services - [address] [place] [address] [place] [address] [place], [place] [id number] [phone] Social History Tobacco Use Types Packs/Day Years Used Date Never Assessed Sex Assigned at Date Recorded Not on file documented as of this encounter Plan of Treatment Not on filedocumented as of this encounter Procedures Procedure Name Priority Date/Time Associated Diagnosis Comme [facility] SURGICAL PATHOLOGY Routine 09/27/2011 0:00 EST Re sults for this procedure are i n the results section. documented in this encounter Results SURGICAL PATHOLOGY (09/27/2011 0:00 EST) Pathology Report: SURGICAL PATHOLOGY REPORT EMILIO DELGADO Reports generated via electronic interface contain ran ginal data; LAB however they are lacking the format of the original re port. Caution should be taken when reading/interpreting unfo rmatted reports. Name: ? ALTAGRACIA KRAUS TTKimberley ? Accession #: ? [id number] ? : ? 1950 (Age: 61) ??F ? Collect Date: ? 09/27/2011 ? Location: ? [facility] ? Receive Date: ? 011 ? Provider: EMILIANO TAPIA DO Copy to: RAIMUNDO CAT COTTON FARMWORKER ? Final Pathologic Diagnosis: ? Colon, hepatic flexure, polyp, biopsy: - Tubular adenoma. ?? Document reviewed and electronically signed by: TAIWO MENENDEZ MD Report ??Date: 09/29/2011 16:30 By the signature above, the attending physician certif ies that he/she has personally conducted a gross and/or microscopic examin ation of the described specimens and rendered or confirmed the above diagnosi s. Specimen(s) Received: ? Hepatic flexure polyp Clinical History: ? Colorectal screen Gross Description: ? Received in formalin labelled [place], Shea and 1 ??hepatic flexure polyp is a light waterman polypoid structure measuring 0.3 x 0.3 x 0.2 cm. ??The specimen is submitted intact in one cassette. ??(LIZ Pulido)/taylor End of Report Specimen Performing Organization Address City/State/ZIP Code Phon e Number [facility] [address] [place] [address] SERVICES [facility] [address] [place] [address] documented in this encounter Visit Diagnoses Not on filedocumented in this encounter
--- OUTSIDE RECORDS SUMMARY | 2022-08-19 02:43 | XMS_ITS | Encounter Summary ---
:1950 Author Organization [facility] Address [address] [place] [address] Care Team Providers Name Role Phone Saadia Hicks LIFE SCIENCE RESEARCH ASSISTANT Primary Care Provider Encounter Details Date Type Department Care Team Description 08/31/2015 Results Only [facility] Alea Coleman MD [phone] [address] [place] [address] Social History Tobacco Use Types Packs/Day Years Used Date Never Assessed Sex Assigned at Date Recorded Not on file documented as of this encounter Plan of Treatment Not on filedocumented as of this encounter Procedures Procedure Name Priority Date/Time Associated Diagnosis Comme nts PAP TEST- RESULT Routine 08/31/2015 0:00 EST Resu lts for this ONLY procedure are i n the results section. documented in this encounter Results PAP TEST- RESULT ONLY (08/31/2015 0:00 EST) Pathology Report: CYTOPATHOLOGY REPORT [facility] Reports generated via electronic interface contain ran ginal data; SERVICES however they are lacking the format of the original re port. Caution should be taken when reading/interpreting unfo rmatted reports. Name: ? ALTAGRACIA KRAUS TTKimberley ? Accession #: ? [id number] ? : ? 1950 (Age: 65 ) ??F ?Collect Da te: ? 08/31/2015 ? Location: ? [facility] ? Receive Date: ? 015 ? Provider: ALEA ASHBY MD Copy to: SHAKIR ALVAREZ DO ? Final Report SPECIMEN ADEQUACY ? Satisfactory for Evaluation - transformation zone component present GENERAL CATEGORIZATION ? Negative for Intraepithelial Lesion or Malignan cy ?? Specimen/Source: ??Pap Test, Cervix/Endocervix, ThinPr ep Imaging System with manual evaluation Document reviewed and electronically signed by: ? Leslie Christianson, CT(ASCP) ? Report ??Date: 09/03/2015 11:30 HPV with Pap Test ? Date Ordered: ? 09/03/2015 ? Status: ?? Signed Out ?Date Complete: ? 09/07/2015 ? By: ??S ystem Interface ? Date Reported: ? 09/07/2015 ? Interpretation RESULT: Negative for HPV. No E6 or E7 mRNA is detected from HPV types 16,18,31,3 3,35, 39,45,51,52,56,58,59,66, and 68 by linux network systems administrator media leonardo amplification. Comments Document reviewed and electronically signed by: ? System Interface ? Report date: 09/07/2015 By the signature above, the attending physician certif ies that he/she has personally conducted a gross and/or microscopic examin ation of the described specimens and rendered or confirmed the above diagnosi s. End of Report Specimen Performing Organization Address City/State/ZIP Code Phon e Number [facility] [address] [place] [address] SERVICES documented in this encounter Visit Diagnoses Not on filedocumented in this encounter Care Teams Coal Briquette Machine Operator Relationship Specialty Start Date End Date Saadia Hicks NP PCP - General 09/29/11 [address] [facility],[address] [address] documented as of this encounter
--- OUTSIDE RECORDS SUMMARY | 2022-08-19 02:43 | XMS_ITS | Encounter Summary ---
:1950 Author Organization [facility] Address [address] [place] [address] Care Team Providers Name Role Phone Saadia Hicks PRINTING ENGINEER Primary Care Provider Encounter Details Date Type Department Care Team Description 12/29/2017 Results Only [facility]- Osiel Harris MD [phone] [facility]5 [facility],[address] [address] (Wo rk) Social History Tobacco Use Types Packs/Day Years Used Date Never Assessed Sex Assigned at Date Recorded Not on file documented as of this encounter Plan of Treatment Not on filedocumented as of this encounter Procedures Procedure Name Priority Date/Time Associated Diagnosis Comme nts PAP TEST- RESULT Routine 12/29/2017 0:00 EDT Resu lts for this ONLY procedure are i n the results section. documented in this encounter Results PAP TEST- RESULT ONLY (12/29/2017 0:00 EDT) Pathology Report: CYTOPATHOLOGY REPORT [facility] Reports generated via electronic interface contain ran ginal data; SERVICES however they are lacking the format of the original re port. Caution should be taken when reading/interpreting unfo rmatted reports. Name: ? ALTAGRACIA KRAUS TTKimberley ? Accession #: ? [id number] ? : ? 1950 (Age: 67 ) ??F ?Collect Date: ? 12/29/2017 ? Location: ? [facility] ? Receive Date: ? 01/02/20 18 ? Provider: OSIEL HORNE MD Copy to: SHAKIR ALVAREZ DO ? Final Report SPECIMEN ADEQUACY ? Satisfactory for Evaluation - transformation zone component present GENERAL CATEGORIZATION ? Negative for Intraepithelial Lesion or Malignan cy ?? Specimen/Source: ??Pap Test, Cervix/Endocervix, ThinPr ep Imaging System with manual evaluation Document reviewed and electronically signed by: ? Tonya Marcos, [facility](ASCP) ? Report ??Date: 01/08/2018 09:26 HPV with Pap Test ? Date Ordered: ? 01/08/2018 ? Status: ?? Signed Out ?Date Complete: ? 01/10/2018 ? By: ??Sy stem Interface ? Date Reported: ? 01/10/2018 ? Interpretation RESULT: Negative for HPV. No E6 or E7 mRNA is detected from HPV types 16,18,31,3 3,35, 39,45,51,52,56,58,59,66, and 68 by claims examiner media leonardo amplification. Comments Document reviewed and electronically signed by: ? System Interface ? Report date: 01/10/2018 By the signature above, the attending physician certif ies that he/she has personally conducted a gross and/or microscopic examin ation of the described specimens and rendered or confirmed the above diagnosi s. End of Report Specimen Performing Organization Address City/State/ZIP Code Phon e Number [facility] [address] [place] [address] SERVICES documented in this encounter Visit Diagnoses Not on filedocumented in this encounter Care Teams Card Sorter Relationship Specialty Start Date End Date Besch, Saadia W, PRINTING ENGINEER PCP - General 09/29/[address] [place] [phone] documented as of this encounter
--- OUTSIDE RECORDS SUMMARY | 2022-08-19 02:43 | XMS_ITS | Encounter Summary ---
:1950 Author Organization [facility] Address [address] [place] [address] Care Team Providers Name Role Phone Unavailable Primary Care Provider Unavailable Encounter Details Date Type Department Care Team Description 06/19/2007 Results Only [facility] - Brie Wills MD Maple conversion [address] [place] [address] [place] [address] Social History Tobacco Use Types Packs/Day Years Used Date Never Assessed Sex Assigned at Date Recorded Not on file documented as of this encounter Plan of Treatment Not on filedocumented as of this encounter Procedures Procedure Name Priority Date/Time Associated Diagnosis Comme nts CYTOPATHOLOGY Routine 06/19/2007 0:00 EDT Results for this procedure are i n the results section . documented in this encounter Results CYTOPATHOLOGY (06/19/2007 0:00 EDT) Pathology Report: CYTOPATHOLOGY REPORT [facility] Reports generated via electronic interface contain ran ginal data; however they are lacking the format of the original re port. Caution should be taken when reading/interpreting unfo rmatted reports. Name: ? SHEA KRAUS ? Accession #: ? [id number] : ? 1950 (Age: 57) ??F ?Collect Date: ? 01/2007 Location: ? [facility] ? Receive Date : ? 06/21/2007 Provider: ?DANYA WILLS MD Copy to: ? Specimen/Source: ? ThinPrep Pap Test, Cervix/Endocervix, processed on Prosodic ThinPrep Imaging System, with manual evaluation Last Menstrual Period: ? Other: ? HPVA - HPV testing requested if ASC-US on the current ThinPrep Pap test. ? SPECIMEN ADEQUACY ? Satisfactory for Evaluation - transformation zone component present GENERAL CATEGORIZATION ? Negative for Intraepithelial Lesion or Malignan cy INTERPRETATION ? Reactive cellular justo nges associated with inflammation present (includes repair). ? Document reviewed and electronically signed by: ? EJ CAMACHO MD ? Report Date: ??06/28/2007 16:36 End of Report Specimen Performing Organization Address City/State/ZIP Code Phon e Number [facility] [address] [place] [address] SERVICES [facility] [address] [place] [address] documented in this encounter Visit Diagnoses Not on filedocumented in this encounter
--- OUTSIDE RECORDS SUMMARY | 2022-08-19 02:43 | XMS_ITS | Encounter Summary ---
:1950 Author Organization [facility] Address [address] [place] [address] Care Team Providers Name Role Phone Unavailable Primary Care Provider Unavailable Encounter Details Date Type Department Care Team Description 07/16/[address] [facility] - Brie Wills MD Converted Visit Maple conversion [address] ([place]) [address] [place] [phone] Social History Tobacco Use Types Packs/Day Years Used Date Never Assessed Sex Assigned at Date Recorded Not on file documented as of this encounter Plan of Treatment Not on filedocumented as of this encounter Procedures Procedure Name Priority Date/Time Associated Diagnosis Comme nts CYTOPATHOLOGY Routine 07/16/2008 0:00 EDT Results for this procedure are i n the results section . documented in this encounter Results CYTOPATHOLOGY (07/16/2008 0:00 EDT) Pathology Report: CYTOPATHOLOGY REPORT ? [facility] ? LAB Reports generated via [employer] interface contain original data; ? however they are lacking the format of the original report. ? Caution should be taken when reading/interpreting unformatted reports. ? Name: ? ALTAGRACIA KRAUS ? Accession #: ? [id number] ? : ? 1950 (Age: 58) ??F ?Collect Date: ? 07/16/2008 ? Location: ? [facility] ? Receive Date: ? 07/17/2008 ? Provider: ?DANYA RADHA L MD ? Copy to: ? Specimen/Source: ? Pap Test, Cervix/Endocervix, ThinPrep Imaging System ? with manual evaluation ? Last Menstrual Period: ? Menstrual/ Status: ? Post Menopausal ? Hormonal/Contraceptive Statu s: ? Yes ? Other: ? HPVA - HPV testing requested if ASC-US on the current ThinPrep Pap test. ? SPECIMEN ADEQUACY ? Satisfactory for Eval uation ? - transformation zone compon ent present ? GENERAL CATEGORIZATION ? Negative for Intraepi thelial Lesion or Malignancy ? Document reviewed and electr onically signed by: ? Lynan Lazaro, CT(ASCP) ? Report Date: ??10/03/ 2008 14:44 ? End of Report ? Specimen Performing Organization Address City/State/ZIP Code Phon e Number [facility] [address] [place] [address] SERVICES [facility] [address] [place] [address] documented in this encounter Visit Diagnoses Not on filedocumented in this encounter
--- OUTSIDE RECORDS SUMMARY | 2022-08-19 02:43 | XMS_ITS | Encounter Summary ---
:1950 Author Organization [facility] Address [address] [place] [address] Care Team Providers Name Role Phone Saadia Hicks DEPOT AGENT Primary Care Provider Encounter Details Date Type Department Care Team Description 08/10/2022 Lab Requisition [facility] Michelle Nicholson for Pathology & MD Donny screening for Laboratory Medicine [address] malignant neoplasm - [place], [place] of colon [address] [facility] [address] [place], [place] [address] Social History Tobacco Use Types Packs/Day Years Used Date Never Assessed Sex Assigned at Date Recorded Not on file documented as of this encounter Plan of Treatment Not on filedocumented as of this encounter Procedures Procedure Name Priority Date/Time Associated Diagnosis Comme nts SURGICAL PATHOLOGY Today 08/10/2022 7:37 EDT Encounter for R esults for this screening for procedure are in malignant neoplasm the resul ts of colon section. documented in this encounter Results SURGICAL PATHOLOGY (08/10/2022 7:37 EDT) Note to Patient The following [facility] pathology results CENTER have been interpreted LABORATORY by your pathologist SERVICES and may be available to you before your health provider has had the opportunity to review them. Please allow time for your provider to receive these results and explore management options, if applicable. Final Diagnosis A. COLON, CECUM, POLYP x2: [facility] - Fragments of tubular adenomas. CENTER LABORATORY B. COLON, ASCENDING, POLYP x2: SERVICES - Fragments of tubular adenoma. - Separate fragments of sessile serrated adenoma. See comment. C. COLON, SIGMOID, POLYP: - Tubular adenoma. Diagnosis Comment Specimen B shows no [facility] evidence of cytologic CENTER dysplasia in sessile LABORATORY serrated adenoma SERVICES fragments. Attestation By the signature [facility] Electronica lly below, the attending CENTER signed by physician Jacobo certifies LABORATORY Viktoriya Rosa MD on that they have 1) SERVICES 08/11/2022 at 1310 personally conducted a gross and/or microscopic examination of the described specimen(s), and/or personally interpreted the results of laboratory testing of the described specimen(s), and 2) personally rendered or confirmed the above diagnosis. Clinical History Screening/hx polyps; [facility] clinical diagnosis CENTER code: Z12.11 LABORATORY SERVICES Gross Description A. [facility] Received in formalin gertrudis d with proper patient identification (initials A, C) and cecal polyp x2 are 3 light waterman tissues ranging in size from 0.3 x 0.3 x 0.1 cm up to 0.7 x 0.5 x 0.3 cm. Submitted intact in A1. [facility] B. SERVICES Received in formalin gertrudis d with proper patient identification (initials A, C) and ascending colon polyp x2 are 8 waterman-pink tissues ranging in size from 0.1 x 0.1 x 0.1 cm up to 0.5 x 0.2 x 0.1 cm. Submitted intact in B1-B2. C. Received in formalin gertrudis d with proper patient identification (initials A, C) and sigmoid polyp is a waterman-pink tissue measuring 0.4 x 0.3 x 0.1 cm. Submitted intact in C1. STANISLAW MAYORGA(ASCP) 08/10/2022 19:30 Performing Lab [facility] SERVICES Scanned Images [facility] SERVICES Specimen Tissue - Entire sigmoid colon (body stru cture) Tissue specimen (specimen) - Ascending c olon structure (body structure) Tissue specimen (specimen) - Entire sigm oid colon (body structure) Performing Organization Address City/State/ZIP Code Phon e Number [facility] [address] [place] [address] SERVICES documented in this encounter Visit Diagnoses Diagnosis Encounter for screening for malignant ne oplasm of colon Special screening for malignant neoplasm s, colon documented in this encounter Care Teams [employer] Relationship Specialty Start Date End Date Saadia Hicks, ONEAL PCP - General 09/29/11 [address] [facility] [address] [place] [address] documented as of this encounter
--- OUTSIDE RECORDS SUMMARY | 2022-08-19 02:43 | XMS_ITS | Clinical Summary ---
:1950 Author Organization [facility] Address [address] [place] [address] Care Team Providers Name Role Phone Saadia Hicks CERAMICS TEST ENGINEER Primary Care Provider Encounters Date Type Specialty Care Team Description 08/10/2022 Lab Requisition Clinical Laboratory Sarah Nicholson nter for MD Donny screening f or malignant neopl asm of colon from Last 3 Months Social History Tobacco Use Types Packs/Day Years Used Date Never Assessed Sex Assigned at Date Recorded Not on file Plan of Treatment Health Maintenance Due Date Last Done Comments Hepatitis C Screen 1950 COVID-19 Vaccine (#1) 1950 Fall Risk Screening 2015 Procedures Procedure Name Priority Date/Time Associated Diagnosis Comme nts SURGICAL PATHOLOGY Today 08/10/2022 7:37 EDT Encounter for R esults for this screening for procedure are in malignant neoplasm the resul ts of colon section. from Last 3 Months Results SURGICAL PATHOLOGY (08/10/2022 7:37 EDT) Note to Patient The following [facility] pathology results CENTER have been interpreted LABORATORY by your pathologist SERVICES and may be available to you before your health provider has had the opportunity to review them. Please allow time for your provider to receive these results and explore management options, if applicable. Final Diagnosis A. COLON, CECUM, POLYP x2: [facility] - Fragments of tubular adenomas. CENTER LABORATORY B. COLON, ASCENDING, POLYP x2: SERVICES - Fragments of tubular adenoma. - Separate fragments of sessile serrated adenoma. See comment. C. COLON, SIGMOID, POLYP: - Tubular adenoma. Diagnosis Comment Specimen B shows no [facility] evidence of cytologic CENTER dysplasia in sessile LABORATORY serrated adenoma SERVICES fragments. Attestation By the signature [facility] Electronica lly below, the attending CENTER signed by Jacobo physician certifies LABORATORY Viktoriya Rosa MD on that they have 1) SERVICES 08/11/2022 at 1310 personally conducted a gross and/or microscopic examination of the described specimen(s), and/or personally interpreted the results of laboratory testing of the described specimen(s), and 2) personally rendered or confirmed the above diagnosis. Clinical History Screening/hx polyps; [facility] clinical diagnosis CENTER code: Z12.11 LABORATORY SERVICES Gross Description A. [facility] Received in formalin gertrudis d [...] C1. STANISLAW MAYORGA(ASCP) 08/10/2022 19:30 Performing Lab [facility] SERVICES Scanned Images [facility] SERVICES Specimen Tissue - Entire sigmoid colon (body stru cture) Tissue specimen (specimen) - Ascending c olon structure (body structure) Tissue specimen (specimen) - Entire sigm oid colon (body structure) Performing Organization Address City/State/ZIP Code Phon e Number [facility] [address] [place] [address] SERVICES from Last 3 Months Insurance Payer Benefit Plan Subscriber ID Effective Phone Address Typ e / Group Dates [employer] MEDICARE MVP GOLD [id number] 2021-Prese [address] Medicare ANYWHERE [place] [address] (Work) Ariella Kraus Personal/Family Self 1950 [address] (Home) [place] [address] (Work) Ariella Kraus Personal/Family Self 1950 [address] (Home) [place] [address] (Work) Ariella Kraus Personal/Family Self 1950 [address] (Home) [place] [address] (Work) Care Teams Aquaculture And Fisheries Professor Relationship Specialty Start Date End Date Saadia Hicks NP PCP - General 09/29/[address] [place] [address], [place] [address]
--- OUTSIDE RECORDS SUMMARY | 2022-08-19 02:43 | XMS_ITS | Encounter Summary ---
:1950 Author Organization [facility] Address [address] [place] [address] Care Team Providers Name Role Phone Unavailable Primary Care Provider Unavailable Encounter Details Date Type Department Care Team Description 07/28/2009 Orders Only [facility] Alea Wills MD Laboratory Services - [address] [place] [address] [address] [place] [address] Social History Tobacco Use Types Packs/Day Years Used Date Never Assessed Sex Assigned at Date Recorded Not on file documented as of this encounter Plan of Treatment Not on filedocumented as of this encounter Procedures Procedure Name Priority Date/Time Associated Diagnosis Comme nts CYTOPATHOLOGY Routine 07/28/2009 0:00 EDT Results for this procedure are i n the results section . documented in this encounter Results CYTOPATHOLOGY (07/28/2009 0:00 EDT) Pathology Report: CYTOPATHOLOGY REPORT ? [facility] ? LAB Reports generated via electr Topic interface contain original data; ? however they are lacking the format of the original report. ? Caution should be taken when reading/interpreting unformatted reports. ? Name: ? ALTAGRACIA KRAUS ? Accession #: ? [id number] ? : ? 1950 (Age: 59) ??F ?Collect Date: ? 07/28/2009 ? Location: ? [facility] ? Receive Date: ? 07/29/2009 ? Provider: ?ALEA RADHA L MD ? Copy to: ? Specimen/Source: ? Pap Test, Cervix/Endocervix, ThinPrep Imaging System ? with manual evaluation ? Last Menstrual Period: ? 2006 ? Menstrual/ Status: ? Post Menopausal ? Other: ? HPVA - HPV testing requested if ASC-US on the current ThinPrep Pap test. ? SPECIMEN ADEQUACY ? Satisfactory for Eval uation ? - transformation zone compon ent present ? GENERAL CATEGORIZATION ? Negative for Intraepi thelial Lesion or Malignancy ? Document reviewed and electr onically signed by: ? Sandy Moreno, S CT(ASCP) ? Report Date: ??10/20/ 2009 16:47 ? End of Report ? Specimen Performing Organization Address City/State/ZIP Code Phon e Number [facility] [address] [place] [address] SERVICES [facility] [address] [place] [address] documented in this encounter Visit Diagnoses Not on filedocumented in this encounter
[2022-08-19 10:42] LABS: ALT 16 U/L (14-59); AST 15 U/L (15-37); Albumin 3.8 g/dL (3.4-5.0); Alkaline Phosphatase 59 U/L (46-116); Anion Gap 7.1 mmol/L (3-11); BUN 19 mg/dL (7-18); Bilirubin, Total 0.6 mg/dL (0.2-1.0); CO2 28.9 mmol/L (21.0-32.0); CREATININE 0.7 mg/dL (0.55-1.02); Calcium 9.2 mg/dL (8.5-10.1); Calculated LDL 100 mg/dL (<100); Chloride 105 mmol/L (98-107); Cholesterol 188 mg/dL (<200); Estimated GFR 91.83 (mL/min/1.73m2); Glucose 83 mg/dL (74-106); HDL Cholesterol 81 mg/dL (40-60); Potassium 4.2 mmol/L (3.5-5.1); Sodium 141 mmol/L (136-145); Total Protein 7.3 g/dL (6.4-8.2); Triglyceride 36 mg/dL (<150)
== END 2022-08-19 02:29 | disposition home or self-care (01) ==
LOC: LBO 02:31
PROVIDERS: PCP Family Medicine; Visit Provider Family Medicine
DX: E78.5 Hyperlipidemia, unspecified (principal); I10 Essential (primary) hypertension
CPT/HCPCS: 36415; 80053; 80061

== ENCOUNTER 2023-03-08 05:25 | Outpatient (CLI) | payer MEDICARE, SELFPAY ==
[2023-03-08 12:59] LABS: ALT 18 U/L (14-59); AST 18 U/L (15-37); Albumin 3.8 g/dL (3.4-5.0); Alkaline Phosphatase 56 U/L (46-116); Anion Gap 9.4 mmol/L (3-11); BUN 16 mg/dL (7-18); Bilirubin, Total 0.6 mg/dL (0.2-1.0); CO2 26.6 mmol/L (21.0-32.0); CREATININE 0.7 mg/dL (0.55-1.02); Calcium 9.1 mg/dL (8.5-10.1); Calculated LDL 156 mg/dL (<100); Chloride 104 mmol/L (98-107); Cholesterol 254 mg/dL (<200); Estimated GFR 91.83 (mL/min/1.73m2); Glucose 90 mg/dL (74-106); HDL Cholesterol 91 mg/dL (40-60); Potassium 3.8 mmol/L (3.5-5.1); Sodium 140 mmol/L (136-145); Total Protein 7.4 g/dL (6.4-8.2); Triglyceride 39 mg/dL (<150)
== END 2023-03-08 05:26 | disposition home or self-care (01) ==
LOC: LOS 05:25
PROVIDERS: PCP Family Medicine; Visit Provider Family Medicine
DX: E78.5 Hyperlipidemia, unspecified (principal); I10 Essential (primary) hypertension
CPT/HCPCS: 36415; 80053; 80061

== ENCOUNTER 2024-07-22 02:43 | Outpatient (CLI) | payer MEDICARE, SELFPAY ==
[2024-07-22 16:46] LABS: ALT 18 U/L (14-59); AST 18 U/L (15-37); Albumin 3.8 g/dL (3.4-5.0); Alkaline Phosphatase 63 U/L (46-116); Anion Gap 8.9 mmol/L (3-11); BUN 14 mg/dL (7-18); Bilirubin, Total 0.63 mg/dL (0.2-1.0); CO2 28.1 mmol/L (21.0-32.0); CREATININE 0.7 mg/dL (0.55-1.02); Calcium 9.1 mg/dL (8.5-10.1); Calculated LDL 161 mg/dL (<100); Chloride 105 mmol/L (98-107); Cholesterol 259 mg/dL (<200); Glucose 86 mg/dL (74-106); HDL Cholesterol 91 mg/dL (40-60); Potassium 3.6 mmol/L (3.5-5.1); Sodium 142 mmol/L (136-145); Total Protein 7.5 g/dL (6.4-8.2); Triglyceride 35 mg/dL (<150)
== END 2024-07-22 02:44 | disposition home or self-care (01) ==
LOC: LBO 02:47
PROVIDERS: PCP Family Medicine; Visit Provider Family Medicine
DX: I10 Essential (primary) hypertension (principal); Z23 Encounter for immunization; Z00.00 Encounter for general adult medical examination without abnormal findings
CPT/HCPCS: 36415; 80053; 80061

== ENCOUNTER 2025-01-02 01:33 | Outpatient (CLI) | payer MEDICARE, SELFPAY ==
[2025-01-02 17:10] LABS: Calculated LDL 74 mg/dL (<100); Cholesterol 176 mg/dL (<200); HDL Cholesterol 96 mg/dL (>or=50); Triglyceride 30 mg/dL (<150)
== END 2025-01-02 01:34 | disposition home or self-care (01) ==
PROVIDERS: PCP Family Medicine; Visit Provider Family Medicine
DX: I10 Essential (primary) hypertension (principal)
CPT/HCPCS: 36415; 80061

== ENCOUNTER 2025-02-14 02:59 | Outpatient (CLI) | payer MEDICARE, SELFPAY ==
[2025-02-14 13:40] LABS: Vitamin B12 271 pg/mL (193-986)
[2025-02-17 10:29] LABS: Hepatitis C Ab w Rflx HCV PCR Negative (Negative)
== END 2025-02-14 03:00 | disposition home or self-care (01) ==
LOC: LBO 02:59
PROVIDERS: PCP Family Medicine; Visit Provider Family Medicine
DX: Z11.59 Encounter for screening for other viral diseases (principal); E53.8 Deficiency of other specified B group vitamins
CPT/HCPCS: 36415; 86803; 82607